=== PATIENT | male | born 1995 | race Caucasian/White ===

== ENCOUNTER 2021-10-31 18:41 | Emergency (ER) | payer OTHER, SELFPAY ==
--- NOTE | ~2021-10-31 | XR_ITS ---
EXAMINATION: XR chest 2V DATE: 10/31/2021 19:13 INDICATION: Tachycardia and chest tightness TECHNIQUE: PA and lateral views of the chest are obtained. COMPARISON: None available FINDINGS: The lungs are free of acute opacities. There is no pleural effusion or pneumothorax. The ca rdiomediastinal silhouette is normal. There is mild thoracic spondylosis. IMPRESSION: 1. No acute cardiopulmonary abnormality. Reviewed, dictated and finalized at location F.
--- NOTE | ~2021-10-31 | CT_ITS ---
EXAMINATION: CTA chest PE protocol DATE: 10/31/2021 22:13 INDICATION: Chest pain and tachycardia TECHNIQUE: Computed tomography angiography (CTA) of the chest was performed with 100 mL Omnipaque-350 intravenous contrast timed to evaluate the pulmonary arteries. Coronal maximum intensity projection 3D-reconstructions were created by the technologist. The dose-length product (DLP) was 1016.35 mGy-cm . Automated exposure control and iterative reconstruction technique were employed. COMPARISON: None. FINDINGS: There is fair opacification of the pulmonary arteries. No central pulmonary embolus is iden tified. The lungs are free of acute opacities. No pathologically enlarged thoracic lymph nodes are id entified. The heart size is normal. There is no pleural effusion or pneumothorax. The liver is diffus [place] low in attenuation when compared with the spleen, consistent with hepatic steatosis. IMPRESSION: 1. Fair opacification of the pulmonary arteries without evidence of central pulmonary embolus. Reviewed, dictated and finalized at location F. IMPRESSION: 1. Fair opacification of the pulmonary arteries without evidence of central pul monary embolus.
--- NOTE | 2021-10-31 18:43 | ECG_ITS ---
Measurements Intervals [place] Rate: 125 P: 46 AL: 172 QRS: -22 QRSD: 90 T: 31 QT: 303 QTc: 437 Interpretive Statements SINUS TACHYCARDIA VOLTAGE CRITERIA FOR LVH BORDERLINE T WAVE ABNORMALITY- INFERIOR LEADS BASELINE ARTIFACT- II, III, AVF ABNORMAL ECG Electronically Signed On 10-31-2021 20:39:00 CDT by Charlie Joshi D.O.
[2021-10-31 18:54] VITALS: BP 154/84; PULSE 130; RESP 19; TEMP 36.4; O2SAT 98
[2021-10-31 19:11] LABS: Basophils Absolute Auto 0.1 K/mm3 (0.0-0.1); Basophils Percent Auto 0.6 % (0.2-1.2); Eosinophils Percent Auto 0.5 % (0-4.4); Hematocrit 48.1 % (42.0-52.0); Hemoglobin 16.3 g/dL (14.0-18.0); Immature Granulocyte Absolute 0.02 K/mm3 (0.00-0.031); Immature Granulocyte Percent A 0.2 % (0-0.5); Lymphocytes Absolute Auto 2.17 K/mm3 (0.9-3.2); Lymphocytes Percent Auto 25.6 % (18.3-44.2); Mean Corpuscular HGB Conc 33.9 g/dl (32-36); Mean Corpuscular Hemoglobin 31.4 pg (26-34); Mean Corpuscular Volume 92.7 fl (80-100); Mean Platelet Volume 9.8 fl (7.4-10.4); Monocytes Absolute Auto 0.9 K/mm3 (0.1-0.6); Monocytes Percent Auto 10.5 % (2.6-8.5); Neutrophils Absolute Auto 5.3 K/mm3 (1.3-6.7); Neutrophils Percent Auto 62.6 % (45.5-73.1); Platelet Count Result 222 k/mm3 (150-375); Red Blood Count 5.19 M/mm3 (4.6-6.20); Red Cell Distribution Width 12.4 % (11.5-14.5); White Blood Count 8.5 K/mm3 (4.5-10.0)
[2021-10-31 19:25] LABS: Alanine Aminotransferase 78 U/L (6-50); Albumin Level 4.8 g/dL (3.5-5.1); Alkaline Phosphatase 77 U/L (38-126); Anion Gap 7 mmol/L (8-16); Aspartate Amino Transferase 71 U/L (17-59); Bilirubin,Total 0.5 mg/dL (0.2-1.3); Blood Urea Nitrogen 12 mg/dL (9-20); Calcium 9.3 mg/dL (8.4-10.2); Carbon Dioxide 30 mmol/L (22-30); Chloride 104 mmol/L (98-107); Estimated CRCL calculation 174 ml/min; Estimated Glomerular Filt Rate > 60; Glucose 157 mg/dL (65-110); Lipase 63 U/L (23-300); Potassium 4.3 mmol/L (3.4-5.0); Sodium 141 mmol/L (137-145)
[2021-10-31 19:28] LABS: INR 1.1; Prothrombin Time 13.4 Seconds (11.1-14.7)
[2021-10-31 19:29] LABS: Partial Thromboplastin Time 30.5 SECONDS (22.3-36.8)
[2021-10-31 19:35] LABS: Troponin I < 0.012 ng/mL (0.000-0.034)
--- NOTE | 2021-10-31 20:41 | ED.CHESTPAIN ---
HPI - Chest Pain General Chief Complaint: Chest Pain Stated Complaint: chest pain Time Seen by Provider: 10/31/21 20:41 Source: patient Mode of arrival: ambulatory Limitations: no limitations History of Present Illness HPI narrative: Patient is 26 years old white male presents to the ED with palpitation, heart rate in the 160, and chest pain off and on for the last few days. Increase level of stress lately. Patient had history of anxiety and PTSD, used to be on clonazepam. Patient received 0.25 mg of lorazepam prior to arrival to the emergency room. Currently his heart rate 131 bpm. Patient does use marijuana, denied tobacco use or alcohol use Related Data Allergies Allergy/AdvReac Type Severity Reaction Status Date / Time No Known Allergies Allergy Unverified 11/10/16 16:41 Review of Systems Review of Systems: All systems reviewed & are unremarkable except as noted in HPI and below Exam Narrative: General appearance: Well-developed, well-nourished Skin: Normal color Head: Normocephalic, nontraumatic Eyes: Clear conjunctiva ENT: Oropharynx normal, ears normal, nose normal Neck: Supple, nontender Chest and respiratory: Airway patent, no respiratory distress, no accessory muscle use Heart: Tachycardia Abdomen: Soft, nontender, no organomegaly, quiet bowel sounds Vascular: Normal peripheral pulses, normal capillary refill. Musculoskeletal: Normal range of motion, nontender back Neurologic: Alert and oriented ?3, [employer] is normal as tested, no gross motor deficit Course Vital Signs Vital signs: Vital Signs Temperature 36.4 C 10/31/21 18:54 Pulse Rate 130 H 10/31/21 18:54 Respiratory Rate 19 10/31/21 18:54 Blood Pressure 154/84 H 10/31/21 18:54 Pulse Oximetry 98 10/31/21 18:54 Oxygen Delivery Room Air 10/31/21 18:54 Temperature 36.4 C 10/31/21 18:54 Pulse Rate 130 H 10/31/21 18:54 Respiratory Rate 19 10/31/21 18:54 Blood Pressure 154/84 H 10/31/21 18:54 Pulse Oximetry 98 10/31/21 18:54 Oxygen Delivery Room Air 10/31/21 18:54 MDM - Chest Pain Lab Data Result diagrams: 10/31/21 19:01 10/31/21 19:01 Labs: Lab Results 10/31/21 10/31/2110/31/22 Range/Units 19:01 19:01 19:01 WBC 8.5 (4.5-10.0) K/mm3 RBC 5.19 (4.6-6.20) M/mm3 Hgb 16.3 (14.0-18.0) g/dL Hct 48.1 (42.0-52.0) % MCV 92.7 (80-100) fl MCH 31.4 (26-34) pg MCHC 33.9 (32-36) g/dl RDW 12.4 (11.5-14.5) % Plt Count 222 (150-375) k/mm3 MPV 9.8 (7.4-10.4) fl Immature Gran % (Auto) 0.2 (0-0.5) % Neut % (Auto) 62.6 (45.5-73.1) % Lymph % (Auto) 25.6 (18.3-44.2) % [place] % (Auto) 10.5 H (2.6-8.5) % Eos % (Auto) 0.5 (0-4.4) % Baso % (Auto) 0.6 (0.2-1.2) % Lymph # (Auto) 2.17 (0.9-3.2) K/mm3 [place] # (Auto) 0.9 H (0.1-0.6) K/mm3 Eos # (Auto) 0.0 (0-0.3) K/mm3 Baso # (Auto) 0.1 (0.0-0.1) K/mm3 Abs Immat Gran (auto) 0.02 (0.00-0.031) K/mm3 Absolute Neuts (auto) 5.3 (1.3-6.7) K/mm3 Absolute Nucleated RBC 0.0 (0.0-0.012) K/mm3 Nucleated RBC % 0.0 (0.0-0.2) % PT 13.4 (11.1-14.7) Seconds INR 1.1 APTT 30.5 (22.3-36.8) SECONDS Sodium 141 (137-145) mmol/L Potassium 4.3 (3.4-5.0) mmol/L Chloride 104 (98-107) mmol/L Carbon Dioxide 30 (22-30) mmol/L Anion Gap 7 L (8-16) mmol/L BUN 12 (9-20) mg/dL Creatinine 0.90 (0.7-1.3) mg/dL Estim Creat Clear Calc 174 ml/min Estimated GFR > 60 (59 - ) Glucose 157 H (65-110) mg/dL Calcium 9.3 (8.4-10.2) mg/dL Total Bilirubin 0.5 (0.2-1.3) mg/dL AST 71 H (17-59) U/L ALT 78 H (6-50) U/L
[2021-10-31 20:50] VITALS: BP 114/74; PULSE 99; RESP 20; O2SAT 100
[2021-10-31 20:57] VITALS: BP 150/102; PULSE 122; RESP 22; O2SAT 96
[2021-10-31 21:03] VITALS: PULSE 122
[2021-10-31] MEDS: LORazepam INJ (*CRX) 2 MG/ML VIAL 1 MG IV PUSH (21:08)
[2021-10-31 21:12] LABS: D Dimer 1.37 ug/mL (<0.48)
--- NOTE | 2021-10-31 21:30 | PC.NURSE ---
called lab at 2129 to add on TSH, spoke with Yury MOSHER 2130
[2021-10-31 22:56] LABS: Troponin I < 0.012 ng/mL (0.000-0.034)
[2021-10-31] MEDS: SODIUM CHLORIDE 0.9% IV 1,000 ML 999 ML IV CONT (22:56)
[2021-10-31] MEDS: ENOXAPARIN 120 MG/0.8 ML SYRINGE SUB-Q (22:57)
[2021-10-31] MEDS: ENOXAPARIN 30 MG/0.3 ML SYRINGE SUB-Q (22:58)
[2021-11-01 00:01] VITALS: BP 156/90; PULSE 113; RESP 22; O2SAT 97
== END 2021-11-01 00:10 | disposition home or self-care (01) ==
PROVIDERS: Emergency Provider Emergency Medicine
DX: R07.89 Other chest pain (principal); R00.2 Palpitations; F41.9 Anxiety disorder, unspecified
CPT/HCPCS: 36415; 71046; 71275; 80053; 83690; 84443; 84484; 85025; 85380; 85610; 85730; 93005; 96361; 96372; 96374; 99284; J1650; J2060; J7030; Q9967

== ENCOUNTER 2022-08-30 14:31 | Emergency (ER) | payer OTHER, SELFPAY ==
--- NOTE | ~2022-08-30 | CT_ITS ---
EXAMINATION: CT abdomen pelvis wo con DATE: 08/30/2022 17:34 INDICATION: Abdominal pain TECHNIQUE: Computed tomography (CT) of the abdomen and pelvis was performed without intravenous contr ast. The dose-length product (DLP) was 915.99 mGy-cm. Automated exposure control and iterative recons truction technique were employed. COMPARISON: None FINDINGS: The lung bases are clear. The heart size is normal. The liver, spleen, pancreas, gallbladde r, and adrenal glands are normal. The kidneys are unremarkable. No stones are identified in the kidne ys, ureters, or bladder. No hydronephrosis or hydroureter. No pathologically enlarged abdominal or pe lvic lymph nodes are identified. No free intraperitoneal gas or evidence of bowel obstruction. The ap pendix is normal. There is mild lumbar spondylosis. IMPRESSION: 1. No CT correlate for the patient's symptoms. Reviewed, dictated and finalized at location F.
--- NOTE | ~2022-08-30 | US_ITS ---
EXAMINATION: US scrotum doppler DATE: 08/30/2022 17:07 INDICATION: Right testicular pain TECHNIQUE: Testicular sonogram utilizing grayscale and Doppler COMPARISON: None. FINDINGS: The right testis measures 4.3 x 2.5 x 2.9 cm. The left testis measures 4.7 x 2.4 x 2.6 cm. There is normal vascular flow to both testes. The right epididymis is normal with normal vascular kelsey w. The left epididymis is normal with normal vascular flow. There is no varicocele or hydrocele. IMPRESSION: 1. No sonographic correlate for the patient's symptoms. Reviewed, dictated and finalized at location F.
[2022-08-30 14:36] VITALS: BP 139/84; PULSE 120; RESP 16; TEMP 36.5; O2SAT 99
[2022-08-30 14:47] LABS: Basophils Absolute Auto 0.1 K/mm3 (0.0-0.1); Basophils Percent Auto 0.7 % (0.2-1.2); Eosinophils Absolute Auto 0.1 K/mm3 (0-0.3); Eosinophils Percent Auto 0.8 % (0-4.4); Hematocrit 47.9 % (42.0-52.0); Hemoglobin 16.7 g/dL (14.0-18.0); Immature Granulocyte Absolute 0.02 K/mm3 (0.00-0.031); Immature Granulocyte Percent A 0.2 % (0-0.5); Lymphocytes Absolute Auto 3.29 K/mm3 (0.9-3.2); Lymphocytes Percent Auto 33.5 % (18.3-44.2); Mean Corpuscular HGB Conc 34.9 g/dl (32-36); Mean Corpuscular Hemoglobin 31.5 pg (26-34); Mean Corpuscular Volume 90.2 fl (80-100); Mean Platelet Volume 9.5 fl (7.4-10.4); Monocytes Percent Auto 10.6 % (2.6-8.5); Neutrophils Absolute Auto 5.3 K/mm3 (1.3-6.7); Neutrophils Percent Auto 54.2 % (45.5-73.1); Platelet Count Result 204 k/mm3 (150-375); Red Blood Count 5.31 M/mm3 (4.6-6.20); Red Cell Distribution Width 12.1 % (11.5-14.5); White Blood Count 9.8 K/mm3 (4.5-10.0)
[2022-08-30 14:59] LABS: Alanine Aminotransferase 58 U/L (6-50); Alkaline Phosphatase 69 U/L (38-126); Anion Gap 11 mmol/L (8-16); Aspartate Amino Transferase 53 U/L (17-59); Bilirubin,Total 1.4 mg/dL (0.2-1.3); Blood Urea Nitrogen 14 mg/dL (9-20); Calcium 9.4 mg/dL (8.4-10.2); Carbon Dioxide 25 mmol/L (22-30); Chloride 102 mmol/L (98-107); Estimated CRCL calculation 184 ml/min; Estimated Glomerular Filt Rate > 60; Glucose 107 mg/dL (65-110); Lipase 97 U/L (23-300); Potassium 3.4 mmol/L (3.4-5.0); Sodium 138 mmol/L (137-145)
[2022-08-30 15:28] LABS: Appearance Urine Clear (Clear); Bacteria Urine None Seen /hpf; Bilirubin Urine Negative (Negative); Blood Urine 3+ (Negative); Color Urine Yellow (Yellow); Glucose Urine UA Negative (Negative); Ketones Urine Trace mg/dL (Negative); Leukocyte Esterase Ur Negative LEU/UL (Negative); Nitrate Urine Negative (Negative); Non Pathogenic Casts 0-2; Protein Urine 2+ mg/dL (Negative); RBC Urine 51-100 /hpf (0-2); Specific Grav Ur 1.021 (1.001-1.035); Squamous Epithelial Cell Urine None seen /hpf (Few); WBC Urine 0-5 /hpf
[2022-08-30 15:29] LABS: Add Urine Microscopic? YES
[2022-08-30] MEDS: KETOROLAC 30 MG/ML VIAL (*BKC) IV PUSH (16:44)
--- NOTE | 2022-08-30 16:50 | ED.GENADULT ---
HPI - General Adult General Chief complaint: Abdominal Pain Stated complaint: abd pain, scrotal pain, VILLALOBOS, vomiting Time Seen by Provider: 08/30/22 15:35 History of Present Illness HPI narrative: Patient is a 27-year-old male who presents ER with right-sided testicle pain. Ongoing for 3 days. It was dull and achy initially but is increased in intensity over the last couple days. No urinary frequency urgency or dysuria. No urethral discharge. No concern for STI. He has had some mild flank pain previously but did not feel it was related. Has suprapubic discomfort. Occasionally has nausea with some vomiting. Denies trauma. Related Data Allergies Allergy/AdvReac Type Severity Reaction Status Date / Time No Known Allergies Allergy Unverified 11/10/16 16:41 Review of Systems Review of Systems: All systems reviewed & are unremarkable except as noted in HPI and below Constitutional: Constitutional: Denies chills, Denies fatigue and Denies fever(s) Cardiovascular: Cardiovascular: Denies chest pain and Denies rapid heart rate Gastrointestinal: Gastrointestinal: Reports abdominal pain, Denies diarrhea, Reports nausea and Reports vomiting Genitourinary: Genitourinary: Denies hematuria, Denies genital lesions, Denies dysuria, Denies penile discharge and Reports testicular pain PMFSH Past Medical History Medical History (Updated 08/30/22 @ 18:40 by Jason Mathew MD) Hypertension Surgical History Surgical History (Updated 08/30/22 @ 16:52 by Jason Mathew MD) No history of previous surgery Exam Narrative: GENERAL: Well-appearing, well-nourished, and in no acute distress. HEAD: Normocephalic, atraumatic. NECK: Supple. CHEST: Clear to auscultation. No respiratory distress. HEART: Regular rate and rhythm. Normal peripheral pulses. ABDOMEN: Soft, nontender, nondistended. : Buried uncircumcised penis with manipulated shows no urethral discharge or abnormality of the glans. Testicles nontender bilaterally. No inguinal hernia. EXTREMITIES: Normal range of motion. No edema. SKIN: Warm, dry, no rash. NEURO: Alert and oriented x3. PSYCH: Normal mood and affect. Course Course Emergency Course: Patient resting comfortably. Informed of results. No source of discomfort however patient does have some hematuria so I suspect he could have potentially passed a kidney stone. Patient be discharged. Recommend tight fitting underwear and anti-inflammatories. Vital Signs Vital signs: Vital Signs Temperature 97.7 F 08/30/22 14:36 Pulse Rate 120 H 08/30/22 14:36 Respiratory Rate 16 08/30/22 14:36 Blood Pressure 139/84 08/30/22 14:36 Pulse Oximetry 99 08/30/22 14:36 Oxygen Delivery Room Air 08/30/22 14:36 Temperature 97.7 F 08/30/22 14:36 Pulse Rate 95 08/30/22 18:26 Respiratory Rate 18 08/30/22 18:26 Blood Pressure 128/78 08/30/22 18:26 Pulse Oximetry 100 08/30/22 18:26 Oxygen Delivery Room Air 08/30/22 14:36 Medical Decision Making Vital Signs Vital Signs: Vital Signs Temperature 97.7 F 08/30/22 14:36 Pulse Rate 120 H 08/30/22 14:36 Respiratory Rate 16 08/30/22 14:36 Blood Pressure 139/84 08/30/22 14:36 Pulse Oximetry 99 08/30/22 14:36 Oxygen Delivery Room Air 08/30/22 14:36 Temperature 97.7 F 08/30/22 14:36 Pulse Rate 95 08/30/22 18:26 Respiratory Rate 18 08/30/22 18:26 Blood Pressure 128/78 08/30/22 18:26 Pulse Oximetry 100 08/30/22 18:26 Oxygen Delivery Room Air 08/30/22 14:36 Lab Data 08/30/22 14:40 08/30/22 14:40 Labs: Lab Results 08/30/22 08/30/22 08/30/22 Range/Units 14:40 14:40 15:17 WBC 9.8 (4.5-10.0) K/mm3 RBC 5.31 (4.6-6.20) M/mm3 Hgb 16.7 (14.0-18.0) g/dL Hct 47.9 (42.0-52.0) % MCV 90.2 (80-100) fl MCH 31.5 (26-34) pg MCHC 34.9 (32-36) g/dl RDW 12.1 (11.5-14.5) % Plt Count 204 (150-375) k/mm3 MPV 9.5 (7.4-10.4)
[2022-08-30 18:26] VITALS: BP 128/78; PULSE 95; RESP 18; O2SAT 100
== END 2022-08-30 18:49 | disposition home or self-care (01) ==
PROVIDERS: Emergency Provider Emergency Medicine
DX: N50.811 Right testicular pain (principal); I10 Essential (primary) hypertension
CPT/HCPCS: 36415; 74176; 76870; 80053; 81001; 83690; 85025; 93976; 96374; 99284; J1885

== ENCOUNTER 2023-08-29 16:50 | Emergency (ER) | payer OTHER, SELFPAY ==
[2023-08-29 16:52] VITALS: BP 154/83; PULSE 94; RESP 18; TEMP 36.2; O2SAT 98
--- NOTE | 2023-08-29 16:56 | ED.ARRPALP ---
HPI - Arrhythmia/Palpitations General Chief Complaint: Arrhythmia/Palpitations Stated Complaint: anxiety, elevated HR, legs feel shakey Time Seen by Provider: 08/29/23 16:56 History of Present Illness HPI narrative: 28-year-old male with reported history of anxiety and hypertension presents to emergency department for palpitations. Patient states he woke up this morning around 11:00 a.m. feeling like his heart was beating quickly. States that not resolved which prompted come to the ER. Patient states he has associated tingling in his hands and feet and believes that his symptoms are secondary to anxiety. He does not take anything for anxiety. He does have a PCP. States since he has been in the ER he feels much better and relieved. He denies chest pain or shortness of breath, syncope, fever, nausea vomiting, diarrhea, abdominal pain , cough or congestion, SI or HI. Related Data Allergies Allergy/AdvReac Type Severity Reaction Status Date / Time No Known Allergies Allergy Verified 08/29/23 16:55 Review of Systems Review of Systems: CONSTITUTIONAL: Denies fever, chills, or sweats. EYES: Denies visual changes, redness, or discharge. ENT: Denies rhinorrhea, congestion, sore throat, or otalgia. CARDIOVASCULAR: see HPI RESPIRATORY: Denies cough or dyspnea. GASTROINTESTINAL: Denies abdominal pain, nausea, vomiting, or diarrhea. GENITOURINARY: Denies dysuria or hematuria. SKIN: Denies rash or itching. MUSCULOSKELETAL: Denies back pain, joint pain, or myalgia. NEUROLOGIC: Denies headache, numbness, or weakness. PSYCHIATRIC: See HPI PMFSH Past Medical History Medical History Hypertension Surgical History Surgical History No history of previous surgery Exam Narrative: GENERAL: Well-appearing, well-nourished, and in no acute distress. HEAD: Normocephalic, atraumatic. EYES: PERRLA and EOMI. ENT: Nares clear, no rhinorrhea or epistaxis. Mucous membranes moist. NECK: Supple. CHEST: Clear to auscultation. No respiratory distress. HEART: Regular rate and rhythm. No murmur heard. Normal peripheral pulses. ABDOMEN: Soft, nontender, nondistended, normal active bowel sounds. EXTREMITIES: Normal range of motion. No edema. SKIN: Warm, dry, no rash. NEURO: No focal deficits. Alert and oriented x3 Course Vital Signs Vital signs: Vital Signs Temperature 97.2 F L 08/29/23 16:52 Pulse Rate 94 08/29/23 16:52 Respiratory Rate 18 08/29/23 16:52 Blood Pressure 154/83 H 08/29/23 16:52 Pulse Oximetry 98 08/29/23 16:52 Oxygen Delivery Room Air 08/29/23 16:52 Temperature 97.2 F L 08/29/23 16:52 Pulse Rate 94 08/29/23 16:52 Respiratory Rate 18 08/29/23 16:52 Blood Pressure 154/83 H 08/29/23 16:52 Pulse Oximetry 98 08/29/23 16:52 Oxygen Delivery Room Air 08/29/23 16:52 MDM - Arrhythmia/Palpitations MDM Narrative Medical decision making narrative: 28-year-old male with history of anxiety and hypertension presents to the emergency department for reported fast heart rate that started today association paresthesias in his hands and feet. upon arrival, patient's heart rate has bounced between 80-95 in triage. He denies any symptoms. States he feels much better since being in the ER. I suspect anxiety is the cause of patient's symptoms. Offered an EKG, however he declined. Will send hydroxyzine to pharmacy encouraged close follow-up with his PCP. Strict ED return precautions discussed. He is agreeable to plan verbalized understanding. Discharged in stable condition. Discharge Plan Discharge Clinical Impression: Palpitations, Anxiety Patient Disposition: Home, Self-Care Condition: Stable Instructions: Antibiotic Form, Heart Palpitations (ED), Anxiety (ED) Additional Instructions: Your evaluated in the emergency department for sensation of her heart
== END 2023-08-29 17:07 | disposition home or self-care (01) ==
LOC: ANHED 17:00
PROVIDERS: Emergency Provider Physician Assistant; PCP Internal Medicine
DX: R00.2 Palpitations (principal); F41.9 Anxiety disorder, unspecified; I10 Essential (primary) hypertension
CPT/HCPCS: 99283

== ENCOUNTER 2024-03-13 16:34 | Emergency (ER) | payer MEDICAID, SELFPAY ==
[2024-03-13 16:42] VITALS: BP 146/77; PULSE 107; RESP 20; TEMP 36.4; O2SAT 99
--- NOTE | 2024-03-13 16:55 | ECG_ITS ---
Test Date: 2024-03-13 17:17:50 Measurements Intervals [place] Rate: 90 P: 36 [place]: 170 QRS: -15 QRSD: 90 T: 12 QT: 339 QTc: 416 Interpretive Statements SINUS RHYTHM VOLTAGE CRITERIA FOR LVH [MEETS CRITERIA IN ONE OF: R(aVL), S(V1), R(V5), R(V5/V6)+S(V1)] No previous ECG available for comparison Electronically Signed On 03-14-2024 08:26:47 CDT by Mike Vargas M.D.
[2024-03-13 17:13] LABS: Add Urine Microscopic? YES; Appearance Urine Cloudy (Clear); Bacteria Urine None Seen /hpf; Bilirubin Urine Negative (Negative); Blood Urine 3+ (Negative); Color Urine Yellow (Yellow); Glucose Urine UA Negative (Negative); Ketones Urine Trace mg/dL (Negative); Leukocyte Esterase Ur Negative LEU/UL (Negative); Nitrate Urine Negative (Negative); Non Pathogenic Casts 0-2; Protein Urine 2+ mg/dL (Negative); RBC Urine 0-2 /hpf (0-2); Specific Grav Ur 1.025 (1.001-1.035); Squamous Epithelial Cell Urine None Seen /hpf (Few); WBC Urine 0-5 /hpf (0-3); pH Urine 5.5 (5.0-9.0)
--- NOTE | 2024-03-13 17:21 | ED.MALEGU ---
HPI - Male Genitourinary General Chief complaint: Urogenital-Male Stated complaint: lower back pain/urination issues Time Seen by Provider: 03/13/24 16:53 History of Present Illness HPI Narrative: Patient with history of prostatitis presents here with 4 days of increased urgency and frequency and some suprapubic discomfort. He is also concerned because earlier this morning he woke up and was feeling palpitations, and feeling like his arms and legs were tense. Symptoms have largely resolved. History of slight anxiety denies any recent stressors. Related Data Allergies Allergy/AdvReac Type Severity Reaction Status Date / Time No Known Allergies Allergy Verified 03/13/24 16:35 Review of Systems Review of Systems: All systems reviewed & are unremarkable except as noted in HPI and below PMFSH Past Medical History Medical History Hypertension Surgical History Surgical History No history of previous surgery Exam Narrative: EXAMINATION OF ORGAN SYSTEMS/BODY AREAS: Constitutional: Vital signs per nursing GENERAL:[No acute distress, non-toxic appearing.] HEAD: Normal with no signs of head trauma. EYES: EOMI, conjunctiva normal ENT: Hearing grossly intact LUNGS: Nonlabored breathing. HEART: [Regular rate and rhythm] ABD: [Soft], [nontender to palpation] EXT: Normal range of motion SKIN: [No rashes or lesions.] NEURO: [Alert and oriented x 3. No gross focal sensory or strength deficits.] PSYCH: Normal affect Course Vital Signs Vital signs: Vital Signs Temperature 97.6 F 03/13/24 16:42 Pulse Rate 107 H 03/13/24 16:42 Respiratory Rate 20 03/13/24 16:42 Blood Pressure 146/77 H 03/13/24 16:42 Pulse Oximetry 99 03/13/24 16:42 Oxygen Delivery Room Air 03/13/24 16:42 Temperature 97.6 F 03/13/24 16:42 Pulse Rate 107 H 03/13/24 16:42 Respiratory Rate 20 03/13/24 16:42 Blood Pressure 146/77 H 03/13/24 16:42 Pulse Oximetry 99 03/13/24 16:42 Oxygen Delivery Room Air 03/13/24 16:42 MDM - Male Genitourinary MDM Narrative Medical decision making narrative: Patient presents palpitations and muscle spasms when he woke up this morning that now resolved, and some dysuria. Had similar dysuria symptoms about a year ago, for which he was on antibiotics for about 6 months and was diagnosed with possible chronic pelvic pain syndrome, which resolved. He is monogamous with his fiancee has low concern for STDs. Urinalysis here shows blood, has been the case in the past, however no signs of infection. I did obtain CBC and BMP which are normal. I did obtain EKG given his palpitations, on my independent interpretation shows sinus rhythm rate 90, HI 170, QRS 90, QTC 416, normal axis, no ST elevations or depressions. I did briefly consider possible PE however he has no shortness of breath, DVT symptoms. Stable for discharge at this time with return precautions, patient and fiancee at bedside agreeable to this plan with precautions Lab Data 03/13/24 17:25 03/13/24 17:25 Labs: Lab Results 03/13/24 03/13/24 Range/Units 17:03 17:25 WBC 8.6 (4.5-10.0) K/mm3 RBC 5.19 (4.6-6.20) M/mm3 Hgb 16.2 (14.0-18.0) g/dL Hct 46.6 (42.0-52.0) % MCV 89.8 (80-100) fl MCH 31.2 (26-34) pg MCHC 34.8 (32-36) g/dl RDW 11.9 (11.5-14.5) % Plt Count 208 (150-375) k/mm3 MPV 9.5 (7.4-10.4) fl Immature Gran % (Auto) 0.2 (0-0.5) % Neut % (Auto) 69.3 (45.5-73.1) % Lymph % (Auto) 20.6 (18.3-44.2) % [place] % (Auto) 8.5 (2.6-8.5) % Eos % (Auto) 0.9 (0-4.4) % Baso % (Auto) 0.5 (0.2-1.2) % Lymph # (Auto) 1.77 (0.9-3.2) K/mm3 [place] # (Auto) 0.7 H (0.1-0.6) K/mm3 Eos # (Auto) 0.1 (0-0.3) K/mm3 Baso # (Auto) 0.0 (0.0-0.1) K/mm3 Abs Immat Gran (auto) 0.02 (0.00-0.031) K/mm3 Absolute Neuts (au
[2024-03-13 17:32] LABS: Basophils Percent Auto 0.5 % (0.2-1.2); Eosinophils Absolute Auto 0.1 K/mm3 (0-0.3); Eosinophils Percent Auto 0.9 % (0-4.4); Hematocrit 46.6 % (42.0-52.0); Hemoglobin 16.2 g/dL (14.0-18.0); Immature Granulocyte Absolute 0.02 K/mm3 (0.00-0.031); Immature Granulocyte Percent A 0.2 % (0-0.5); Lymphocytes Absolute Auto 1.77 K/mm3 (0.9-3.2); Lymphocytes Percent Auto 20.6 % (18.3-44.2); Mean Corpuscular HGB Conc 34.8 g/dl (32-36); Mean Corpuscular Hemoglobin 31.2 pg (26-34); Mean Corpuscular Volume 89.8 fl (80-100); Mean Platelet Volume 9.5 fl (7.4-10.4); Monocytes Absolute Auto 0.7 K/mm3 (0.1-0.6); Monocytes Percent Auto 8.5 % (2.6-8.5); Neutrophils Percent Auto 69.3 % (45.5-73.1); Platelet Count Result 208 k/mm3 (150-375); Red Blood Count 5.19 M/mm3 (4.6-6.20); Red Cell Distribution Width 11.9 % (11.5-14.5); White Blood Count 8.6 K/mm3 (4.5-10.0)
[2024-03-13 17:41] LABS: Anion Gap 9 mmol/L (4-12); Blood Urea Nitrogen 17 mg/dL (9-20); Carbon Dioxide 26 mmol/L (22-30); Chloride 103 mmol/L (98-107); Estimated CRCL calculation 205 ml/min; Estimated Glomerular Filt Rate > 60; Glucose 124 mg/dL (65-110); Magnesium 2.1 mg/dL (1.6-2.3); Potassium 4.2 mmol/L (3.4-5.0); Sodium 138 mmol/L (137-145)
[2024-03-13 18:35] LABS: Chlamydia trachomatis NOT DETECTED (NOT DETECTE); Neisseria gonorrhoeae PCR NOT DETECTED (NOT DETECTE)
== END 2024-03-13 18:28 | disposition home or self-care (01) ==
LOC: ANHED 18:07
PROVIDERS: Emergency Provider Emergency Medicine; PCP Internal Medicine
DX: R00.2 Palpitations (principal); R35.0 Frequency of micturition; I10 Essential (primary) hypertension
CPT/HCPCS: 36415; 80048; 81001; 83735; 85025; 87491; 87591; 93005; 99283

== ENCOUNTER 2024-07-29 14:41 | Outpatient (CLI) | payer OTHER, SELFPAY ==
[2024-07-29 15:21] LABS: Basophils Absolute Auto 0.1 K/mm3 (0.0-0.1); Basophils Percent Auto 0.4 % (0.2-1.2); Eosinophils Absolute Auto 0.1 K/mm3 (0-0.3); Eosinophils Percent Auto 0.6 % (0-4.4); Hematocrit 42.3 % (42.0-52.0); Hemoglobin 14.1 g/dL (14.0-18.0); Immature Granulocyte Absolute 0.09 K/mm3 (0.00-0.031); Immature Granulocyte Percent A 0.6 % (0-0.5); Lymphocytes Absolute Auto 2.82 K/mm3 (0.9-3.2); Mean Corpuscular HGB Conc 33.3 g/dl (32-36); Mean Corpuscular Hemoglobin 30.1 pg (26-34); Mean Corpuscular Volume 90.2 fl (80-100); Mean Platelet Volume 9.2 fl (7.4-10.4); Monocytes Absolute Auto 1.6 K/mm3 (0.1-0.6); Monocytes Percent Auto 11.1 % (2.6-8.5); Neutrophils Absolute Auto 9.5 K/mm3 (1.3-6.7); Neutrophils Percent Auto 67.3 % (45.5-73.1); Platelet Count Result 309 k/mm3 (150-375); Red Blood Count 4.69 M/mm3 (4.6-6.20); Red Cell Distribution Width 12.2 % (11.5-14.5); White Blood Count 14.1 K/mm3 (4.5-10.0)
[2024-07-29 16:20] LABS: HIV 1/2 Ab P24 Ag Result Negative (Negative)
[2024-07-29 16:29] LABS: Hepatitis C Virus Antibody Negative (Negative)
[2024-07-29 16:54] LABS: Chlamydia trachomatis NOT DETECTED (NOT DETECTE); Neisseria gonorrhoeae PCR NOT DETECTED (NOT DETECTE)
--- OUTSIDE RECORDS SUMMARY | 2024-07-29 17:02 | XMS_ITS | Patient Health Summary ---
Author Organization [facility] [employer] Address [address] [place] [address] Care Team Providers Care Wool Spotter Name Role Phone Unavailable Primary Care Provider Unavailabl e Note from [facility],non-owned Affiliates and Associated Physician Practices is amultiple site organization consisting of ambulatory clinics and hospital sitesin [place], [place], [place] and [place]. This disclosure is being madepursuant to the Care Everywhere program and may not contain all information available regarding this patient. Last updated 18.[facility] [employer] Allergies No known active allergies Medications * Be aware that medications may not be up to date on this document. Alwaysverify current medications with the patient. * amoxicillin-clavulanate (AUGMENTIN) 875-125 MG tablet(Started 09/09/2013) Take 1 Tab by mouth 2 times daily with morning and evening meal. * albuterol HFA (PROVENTIL;VENTOLIN;PROAIR) 108 (90 BASE) MCG/ACT inhaler (Started 09/09/2013) Inhale 2 Puffs by mouth every 4 hours as needed for Wheezing or Cough. OK TO SUBSTITUTE ANY BRAND. * Spacer/Aero-Holding Chambers (AEROCHAMBER PLUS KIM-VU) MISC(Started 09/09/2013) Use 1 Container every 4 hours as needed. 1 refill left * predniSONE (DELTASONE) 20 MG tablet(Started 09/09/2013) 2 tabs po bid for 5 days * methylphenidate (RITALIN) 10 MG tablet(Started 12/22/2013) Take 1 Tab by mouth Every morning and lunchtime. * miconazole (LOTRIMIN AF) 2 % powder(Started 03/19/2014) Apply to affected area 2 times daily. 3 refills left * hydrOXYzine HCl (ATARAX) 50 MG tablet(Started 11/07/2021) Take 1 (one) tablet by mouth 3 times daily as needed for Itching * hydroCHLOROthiazide (HYDRODIURIL) 25 MG tablet(Started 11/07/2021) Take 1 (one) tablet by mouth once daily Active Problems Problem Noted Date Diagnosed Date ADD (attention deficit disorder) 04/21/2012 BMI (body mass index), pediatric, 95-99% for age 1104/21/2012 Immunizations * DTaP VACCINE IM (6wk-6yrs)(Given 05/16/2001, 08/13/1997, 1996, 1996, 1996) * HEP A PEDS 2 DOSE(Given 09/27/2004, 06/24/2003) * HEP B VACCINE, PED/ADOL(Given 02/26/1997, 1996, 1996) * HIB-PRP-T 4 DOSE(Given 08/13/1997, 1996, 1996, 1996) * Human Papilloma Virus Quadrivalent Vaccine(Given 10/23/2012, 04/21/2012) * Human Papilloma Virus Vaccine(Given 09/24/2011) * INFLUENZA VACCINE(Given 06/08/2002, 04/18/2002) * INFLUENZA VACCINE, QUADR. (FLUZONE; FLULAVAL; FLUARIX; AFLURIA QUADRIVALENT; 6MO+), 0.5 ML (IIV4)(Given 03/19/2014) * Influenza Nasal(Given 04/21/2012) * MENINGOCOCAL MENINGITIS(Given 08/29/2007) * MENINGOCOCCAL CONJUGATE (MCV4P)(Given 04/21/2012) * MMR(Given 05/16/2001, 05/19/1997) * POLIO IPV(Given 05/16/2001) * POLIO OPV(Given 08/13/1997, 1996, 1996, 1996) * PPD(Given 05/16/2001) * TDAP (7yrs+)(Given 08/29/2007) * VARICELLA(Given 05/19/1997) Social History Tobacco Use Types Packs/Day Years Used Date Smoking Tobacco: Never Alcohol Use Standard Drinks/Week Comments No 0 (1 standard drink = 0.6 oz pur e alcohol) Sex and Gender Information Value Date Recorded Sex Assigned at Not on file Gender Identity Not on file Sexual Orientation Not on file Last Filed Vital Signs Vital Sign Reading Time Taken Comments Blood Pressure 159/98 11/07/2021 5:15 AM CDT Pulse 87 11/07/2021 5:15 AM CDT Temperature 36.9 C (98.5 F) 11/06/2021 10:16 PM CDT Respiratory Rate 8 11/07/2021 5:15 AM CDT Oxygen Saturation 95% 11/07/2021 5:15 AM CDT Inhaled Oxygen Concentration - - Weight 156.5 kg (345 lb) 11/06/2021 2:23 PM CDT Height 185.4 cm (6' 1 ) 11/06/2021 2:23 PM CDT Body Mass Index 45.52 11/06/2021 2:23 PM CDT Procedures * CARDIAC EKG ORDER(Performed 11/08/2021) * CT ANGIO CHEST CT ABD PELVIS W(Performed 11/07/2021) Performed for Palpitations * URINE MICROSCOPIC ONLY(Performed 11/07/2021) * URINALYSIS REFLEX TO MICROSCOPIC NO CULTURE(Performed 11/07/2021) * TSH REFLEX FREE T4(Performed 11/07/2021) * B-TYPE NATRIURETIC PEPTIDE(Performed 11/07/2021) * TROPONIN I(Performed 11/07/2021) * XR CHEST 2VW(Performed 11/06/2021) Performed for Palpitations * MAGNESIUM BLOOD(Performed 11/06/2021) * TROPONIN I(Performed 11/06/2021) * COMPREHENSIVE METABOLIC PANEL(Performed 11/06/2021) * CBC W AUTO DIFFERENTIAL(Performed 11/06/2021) * D-DIMER(Performed 11/06/2021) * EKG 12-LEAD(Performed 11/06/2021) Performed for Palpitations Results * CARDIAC EKG ORDER (11/08/2021 6:37 PM CDT) Narrative 11/08/2021 6:37 PM CDT Ordered by an unspecified provider. Scanned Document CARDIAC SERVICES ORD ERABLES * CT ANGIO CHEST CT ABD PELVIS W (11/07/2021 2:30 AM CDT) Anatomical Region Laterality Modality Chest, Abdomen, Pelvis Computed Tomography 11/07/2021 10:2 1 AM CDT Impressions 11/07/2021 10:51 AM CDT 1. No evidence of pulmonary embolism. 2. Hepatic steatosis. I, Michael Newby, have personally reviewed the images and I agree with this report. *Reading Radiologist: iMchael Newby on 11/07/2021 at 10:51 AM Narrative 11/07/2021 10:51 AM CDT INDICATION: 26 year old male with palpitations and abdominal pain COMPARISON: None available. TECHNIQUE: CT angiogram of the chest performed with 80 mL Isovue-370 intravenous contrast according to pulmonary embolism protocol. CT of the abdomen and pelvis with contrast was performed. Coronal and sagittal reformatted images were submitted. FINDINGS: Lungs: There is no focal airspace opacity. Pleural spaces: There is no pneumothorax or pleural effusion. Mediastinum / heart: There is no lymph node enlargement. The heart and pericardium are normal. Vascular: The SVC and IVC are normal. The aorta is normal caliber with left-sided arch. The main and branch pulmonary arteries are normal in caliber. No filling defect is seen. Hepatobiliary: There is hypoattenuation of the liver relative to the spleen, suggesting hepatic steatosis. No gallbladder calculus, gallbladder wall thickening or biliary dilation. Pancreas: Normal without peripancreatic fluid collection. Spleen: Normal attenuation without mass. Normal in size. Adrenal glands: Normal in morphology without mass lesion. : Normal appearance of the kidneys with symmetric parenchymal enhancement. No bladder or deep pelvic soft tissue abnormality is seen. GI: No obstruction or abnormal bowel wall thickening. Normal appendix. Vascular: The aorta and inferior vena cava are normal. Other: No free air or abnormal fluid collection. Bones: The bones are normal. Procedure Note Michael Newby MD - 11/07/2021 INDICATION: 26 year old male with palpitations and abdominal pain COMPARISON: None available. TECHNIQUE: CT angiogram of the chest performed with 80 mL Isovue-370 intravenous contrast according to pulmonary embolism protocol. CT of the abdomen and pelvis with contrast was performed. Coronal and sagittal reformatted images were submitted. FINDINGS: Lungs: There is no focal airspace opacity. Pleural spaces: There is no pneumothorax or pleural effusion. Mediastinum / heart: There is no lymph node enlargement. The heart and pericardium are normal. Vascular: The SVC and IVC are normal. The aorta is normal caliber with left-sided arch. The main and branch pulmonary arteries are normal in caliber. No filling defect is seen. Hepatobiliary: There is hypoattenuation of the liver relative to the spleen, suggesting hepatic steatosis. No gallbladder calculus, gallbladder wall thickening or biliary dilation. Pancreas: Normal without peripancreatic fluid collection. Spleen: Normal attenuation without mass. Normal in size. Adrenal glands: Normal in morphology without mass lesion. : Normal appearance of the kidneys with symmetric parenchymal enhancement. No bladder or deep pelvic soft tissue abnormality is seen. GI: No obstruction or abnormal bowel wall thickening. Normal appendix. Vascular: The aorta and inferior vena cava are normal. Other: No free air or abnormal fluid collection. Bones: The bones are normal. IMPRESSION 1. No evidence of pulmonary embolism. 2. Hepatic steatosis. I, Michael Newby, have personally reviewed the images and I agree with this report. *Reading Radiologist: Michael Newby on 11/07/2021 at 10:51 AM Luz Elena Krishna MD CT ORDERABLES * (ABNORMAL) URINALYSIS REFLEX TO MICROSCOPIC NO CULTURE (11/07/2021 2:14 AM CDT) Color UA Lucía(A) Straw, Yellow 11/07/2021 2:24 AM CDT [facility] Clarity UA Slt Cloudy(A) Clear 11/07/2021 2:24 AM CDT [facility] Glucose UA Negative Negative 11/07/2021 2:24 AM CDT [facility] Bilirubin UA Negative Negative 11/07/2021 2:24 AM CDT [facility] Ketone UA 2+(A) Negative 11/07/2021 2:24 AM CDT [facility] Specific [place] UA 1.031(H) 1.005 - 1.030 11/07/2021 2:24 AM CDT [facility] Blood UA 3+(A) Negative 11/07/2021 2:24 AM CDT [facility] pH UA 5.0 5.0 - 8.0 pH 11/07/2021 2:24 AM CDT [facility] Protein UA 2+(A) Negative 11/07/2021 2:24 AM CDT [facility] Urobilinogen UA Negative Negative mg/dL 11/07/2021 2:24 AM CDT [facility] Nitrite UA Negative Negative 11/07/2021 2:24 AM CDT [facility] Leukocyte UA Negative Negative 11/07/2021 2:24 AM CDT [facility] Urine Microscopy Urine microscopy to follow 11/07/2021 2:24 AM CDT [facility] Urine URINE SPECIMEN OBTAINED BY CLEAN CATCH PROCEDURE / Unknown Collection / Unknown 11/07/2021 2:14 AM CDT 11/07/2021 2:19 AM CDT Narrative [facility] - 11/07/2021 2:24 AM CDT Jana Sanchez APRN-RADIO ELECTRONICS TECHNICIAN LAB - URINALY SIS ORDERABLES [facility] [address] [place] [address] * URINE MICROSCOPIC ONLY (11/07/2021 2:14 AM CDT) RBC UA 3-5 0 - 5 # /hpf 11/07/2021 2:27 AM CDT [facility] WBC UA 0-5 0 - 5 # /hpf 11/07/2021 2:27 AM CDT [facility] Bacteria UA None Seen None Seen 11/07/2021 2:27 AM CDT [facility] Squamous Epithelial Cells 0-2 0 - 5 /hpf 11/07/2021 2:27 AM CDT [facility] Mucus UA 4+ /LPF 11/07/2021 2:27 AM CDT [facility] Urine URINE SPECIMEN OBTAINED BY CLEAN CATCH PROCEDURE / Unknown Collection / Unknown 11/07/2021 2:14 AM CDT 11/07/2021 2:19 AM CDT Narrative [facility] - 11/07/2021 2:27 AM CDT Jana Sanchez COMPUTER INFORMATION SYSTEMS INSTRUCTOR-RADIO ELECTRONICS TECHNICIAN LAB - URINALY SIS ORDERABLES Performing Organization Address [facility]/ZIP Co de Phone Number [facility] [address] [place] [phone] * TSH REFLEX FREE T4 (11/07/2021 1:36 AM CDT) TSH 1.046 0.350 - 4.940 uIU/mL 11/07/2021 2:40 AM CDT [facility] Blood BLOOD SPECIMEN / Unknown Venipuncture / Unknown 11/07/2021 1:36 AM CDT 11/07/2021 1:49 AM CDT Luz Elena Krishna MD LAB - CHEMISTRY LI FRAGOSO Performing Organization Address [facility] Co de Phone Number [facility] [address] [place] [phone] * TROPONIN I (11/07/2021 1:36 AM CDT) Only the most recent of2 resultswithin the time period is included. Troponin I <0.010 <0.038 ng/mL 11/07/2021 2:40 AM CDT [facility] Blood BLOOD SPECIMEN / Unknown Venipuncture / Unknown 11/07/2021 1:36 AM CDT 11/07/2021 1:49 AM CDT Luz Elena Krishna MD LAB - CHEMISTRY LI FRAGOSO Performing Organization Address City/[facility]/ZIP Co de Phone Number [facility] [address] [place] [phone] * B-TYPE NATRIURETIC PEPTIDE (11/07/2021 1:36 AM CDT) BNP <10 <=100 pg/mL 11/07/2021 2:26 AM CDT [facility] Blood BLOOD SPECIMEN / Unknown Venipuncture / Unknown 11/07/2021 1:36 AM CDT 11/07/2021 1:49 AM CDT Narrative [facility] - 11/07/2021 2:26 AM CDT A cutoff of 100 pg/mL has been demonstrated to provide the maximal combination of sensitivity, specificity, and negative predictive value for contributing to the diagnosis of congestive heart failure (CHF) only. A B-Type Natriuretic Peptide (BNP) value greater than or equal to 100 pg/mL is consistent with a diagnosis of CHF in the appropriate clinical setting. False positive results are more common in females greater than 75 years of age. Blood concentrations of natriuretic peptides may also be elevated in patients with myocardial infarction and in patients who are candidates for or are undergoing renal dialysis. Luz Elena Krishna MD LAB - CHEMISTRY LI FRAGOSO [facility] Organization Address City/State/ZIP Co de Phone Number [facility] [address] [place] [address] * XR CHEST PA AND LATERAL (11/06/2021 3:37 PM CDT) Anatomical Region Laterality Modality Chest Radiographic Shavon ging 11/06/2021 3:41 PM CDT Impressions 11/06/2021 3:41 PM CDT No active disease. *Reading Radiologist: Victoriano Epps on 11/06/2021 at 3:41 PM Narrative 11/06/2021 3:41 PM CDT Chest 2 views INDICATION: Palpitations Findings: There are no old studies available for comparison. The lungs are clear of infiltrate. There are no pleural effusions or pneumothorax. The heart size and pulmonary vascularity are normal. Procedure Note Victoriano Epps MD - 11/06/2021 Chest 2 views INDICATION: Palpitations Findings: There are no old studies available for comparison. The lungs are clear of infiltrate. There are no pleural effusions or pneumothorax. The heart size and pulmonary vascularity are normal. IMPRESSION No active disease. *Reading Radiologist: Victoriano Epps on 11/06/2021 at 3:41 PM Jana Sanchez APRN-RADIO ELECTRONICS TECHNICIAN DIAGNOSTIC IM AGING ORDERABLES * (ABNORMAL) D-DIMER (11/06/2021 3:14 PM CDT) D-Dimer 1.55(H) 0.27 - 0.50 ug/mL FEU 11/06/2021 3:29 PM CDT [facility] Blood BLOOD SPECIMEN / Unknown Venipuncture / Unknown 11/06/2021 3:14 PM CDT 11/06/2021 3:14 PM CDT [facility] - 11/06/2021 3:29 PM CDT In the absence of clinical symptoms, a value less than or equal to 0.5 mcg/mL FEU significantly decreases the probability of PE/DVT (negative predictive value >95%). 1 mcg/ml FEU = 1 Fibrinogen Equivalent Unit (approximates 0.5 mcg/mL of D- dimer). Jana AZAR LAB - COAGULA TION ORDERABLES [facility] [address] [place] [address] * (ABNORMAL) CBC W AUTO DIFFERENTIAL (11/06/2021 3:14 PM CDT) WBC 10.5 4.4 - 10.7 x10E9/L 11/06/2021 3:18 PM CDT [facility] WBC Corrected 11/06/2021 3:18 PM CDT [facility] RBC 5.49(H) 3.80 - 5.40 x10E12/L 11/06/2021 3:18 PM CDT [facility] Hemoglobin 17.3 12.0 - 17.6 gm/dL 11/06/2021 3:18 PM CDT [facility] Hematocrit 49.6 35.2 - 51.7 % 11/06/2021 3:18 PM CDT [facility] MCV 90.3 80.7 - 98.3 fl 11/06/2021 3:18 PM CDT [facility] MCH 31.5 26.7 - 34.0 pg 11/06/2021 3:18 PM CDT [facility] MCHC 34.9 30.8 - 35.9 gm/dL 11/06/2021 3:18 PM CDT [facility] Platelet Count 222 153 - 416 x10E9/L 11/06/2021 3:18 PM CDT [facility] RDW-CV 11.9(L) 12.1 - 14.9 % 11/06/2021 3:18 PM CDT [facility] MPV 9.8 9.4 - 12.9 fl 11/06/2021 3:18 PM CDT [facility] Neutrophils % 62.8 44.0 - 73.0 % 11/06/2021 3:18 PM CDT [facility] Lymphocytes % 23.6 20.0 - 43.0 % 11/06/2021 3:18 PM CDT [facility] Monocytes % 12.0 5.0 - 13.0 % 11/06/2021 3:18 PM CDT [facility] Eosinophils % 0.6 0.0 - 6.0 % 11/06/2021 3:18 PM CDT [facility] Basophils % 0.7 0.0 - 2.0 % 11/06/2021 3:18 PM CDT [facility] Immature Granulocytes 0.3 0 - 1 % 11/06/2021 3:18 PM CDT [facility] Neutrophil Absolute 6.62 2.01 - 7.14 x10E9/L 11/06/2021 3:18 PM CDT [facility] Lymphocytes Absolute 2.48 1.07 - 3.94 x10E9/L 11/06/2021 3:18 PM CDT [facility] Monocytes Absolute 1.26(H) 0.26 - 1.07 x10E9/L 11/06/2021 3:18 PM CDT [facility] Eosinophils Absolute 0.06 0 - 0.47 x10E9/L 11/06/2021 3:18 PM CDT [facility] Basophils Absolute 0.07 0 - 0.08 x10E9/L 11/06/2021 3:18 PM CDT [facility] Immature Granulocytes Absolute 0.03 0.00 - 0.06 x10E9/L 11/06/2021 3:18 PM CDT [facility] nRBC Auto 0 /100 WBC 11/06/2021 3:18 PM CDT [facility] Blood BLOOD SPECIMEN / Unknown Venipuncture / Unknown 11/06/2021 3:14 PM CDT 11/06/2021 3:14 PM CDT Jana Sanchez COMPUTER INFORMATION SYSTEMS INSTRUCTOR-RADIO ELECTRONICS TECHNICIAN LAB - HEMATOL OGY ORDERABLES [facility] [address] [place], [place] [id number] * (ABNORMAL) COMPREHENSIVE METABOLIC PANEL (11/06/2021 3:14 PM CDT) Glucose 108(H) 70 - 105 mg/dL 11/06/2021 3:32 PM CDT [facility] Sodium 139 136 - 145 mmol/L 11/06/2021 3:32 PM CDT [facility] Potassium 3.7 3.5 - 5.1 mmol/L 11/06/2021 3:32 PM CDT [facility] Chloride 103 98 - 107 mmol/L 11/06/2021 3:32 PM CDT [facility] CO2 23 23 - 31 mmol/L 11/06/2021 3:32 PM CDT [facility] Calcium 9.7 8.4 - 10.4 mg/dL 11/06/2021 3:32 PM CDT [facility] Anion Gap 13 8 - 18 mmol/L 11/06/2021 3:32 PM CDT [facility] BUN 13 8.9 - 20.6 mg/dL 11/06/2021 3:32 PM CDT [facility] Creatinine 0.93 0.72 - 1.25 mg/dL 11/06/2021 3:32 PM CDT [facility] Alkaline Phosphatase 75 40 - 150 U/L 11/06/2021 3:32 PM CDT [facility] ALT 76(H) 0 - 61 U/L 11/06/2021 3:32 PM CDT [facility] AST 56(H) 5 - 34 U/L 11/06/2021 3:32 PM CDT [facility] Protein Total 8.8(H) 6.4 - 8.3 gm/dL 11/06/2021 3:32 PM CDT [facility] Albumin 4.8 3.5 - 5.2 gm/dL 11/06/2021 3:32 PM CDT [facility] Bilirubin Total 0.9 0.2 - 1.2 mg/dL 11/06/2021 3:32 PM CDT [facility] eGFR by CKD-EPI >90 >=90 mL/min/1.7 3 m2 11/06/2021 3:32 PM CDT [facility] Blood BLOOD SPECIMEN / Unknown Venipuncture / Unknown 11/06/2021 3:14 PM CDT 11/06/2021 3:14 PM CDT Jana Tory Daniel DELA CRUZ-RADIO ELECTRONICS TECHNICIAN LAB - TOOL AND MACHINE MAINTAINER RY ORDERABLES Performing Organization Address [facility] Co de Phone Number [facility] [address] [place] [phone] * MAGNESIUM BLOOD (11/06/2021 3:14 PM CDT) Magnesium 2.0 1.6 - 2.6 mg/dL 11/06/2021 3:32 PM CDT [facility] Blood BLOOD SPECIMEN / Unknown Venipuncture / Unknown 11/06/2021 3:14 PM CDT 11/06/2021 3:14 PM CDT Jana Sanchez APRNTARAV[facility] LAB - TOOL AND MACHINE MAINTAINER RY ORDERABLES Performing Organization Address [facility] Co de Phone Number [facility] [address] [place] [phone] * EKG 12-LEAD (11/06/2021 2:36 PM CDT) Ventricular Rate 96 BPM [facility] Atrial Rate 96 BPM [facility] P-R Interval 160 ms [facility] QRS Duration ms 84 ms [facility] Q-T Interval ms 356 ms [facility] QTC Calculation (Bezet) 449 ms [facility] Calculated P [place] 34 degrees [facility] Calculated R [place] -17 degrees [facility] Calculated T [place] 42 degrees [facility] Interpretation EKG NORMAL SINUS RHYTHM WITH SINUS ARRHYTHMIA MINIMAL VOLTAGE CRITERIA FOR LVH, MAY BE NORMAL VARIANT ( R in aVL ) BORDERLINE ECG NO PREVIOUS ECGS AVAILABLE Confirmed by DO CASTILLO STEPHANIE ([id number]) on 11/07/2021 5:04:08 PM [facility] 11/06/2021 2:36 PM CDT 11/07/2021 5:04 PM CDT Jana Sanchez APRN-RADIO ELECTRONICS TECHNICIAN ECG ORDERABLE [facility]
--- OUTSIDE RECORDS SUMMARY | 2024-07-29 17:02 | XMS_ITS ---
Author Organization [facility] Address [address] [place] [address] Care Team Providers Care Robotic Welder Name Role Phone Esvin San Primary Care Provider Joesph Mckenna Unavailable [phone] Allergies No Known Allergies Reason For Referral Reason CPPS, blood in urine , last saw urology under old insurance, unsure if will take new insurance Diagnosis 1 Chronic prostatitis (N41.1) Diagnosis 2 Gross hematuria (R31 .0) Referral Organization [facility] Referring Provider First Name Joesph Referring Provider Last Name Bala [facility]erring [facility] Referred Provider Specialty Urology General Notes Citlalli Katina GAUTHIER 06/12/2024 10:35:57 AM >Inge was seen by urology at [facility] April 2023. [facility] (and the [facility] Physician's website) indicates they are in network with [facility]. Will fax referral there when note from visit is available. Clinical Notes [facility], Dr. Jose J Crystal, [address], [address], [address] [place] [address], , Referral Priority Routine REASON FOR VISIT last seen 04/02/23--sore throat and blood in urine Medications Medication SIG (Take, Route, Frequency, Duration) Notes Start Date End Date Status Ciprofloxacin HCl 500 MG 1 tablet Orally every 12 hrs for 10 days Active Influenza Vac Split Quad 0.5 ML as directed Intramuscular once Not-Taking Influenza Vac Subunit Quad 0.5 ML as directed Intramuscular Not-Taking Influenza Vac Subunit Quad 0.5 ML as directed Intramuscular once for 1 days Not-Taking Lisinopril-hydroCHLOROth iazide 20-25 MG TAKE 1 TABLET BY MOUTH EVERY DAY for 90 Active Influenza Vac Subunit Quad 0.5 ML as directed Intramuscular once for 1 days Not-Taking Influenza Vac Subunit Quad 0.5 ML as directed Intramuscular once for 1 days Not-Taking Social History Tobacco Use: Social History Observation Description Date Details (start date - stop date) Never Smoker NA - NA Sex Assigned At : Social History Observation Description Sex Assigned At Male Alcohol Screen (Audit-C) Question Answer Notes Did you have a drink containing alcohol in the p ast year? No Tobacco Control (Standard) Question Answer Notes Tobacco use: Nonsmoker Vital Signs Height 73 in 06/11/2024 Weight 326 lb 4 oz lbs 06/11/2024 BMI 43.04 kg/m2 06/11/2024 Temperature 98.8 degrees Fahrenheit 06/11/19 25 Heart Rate 115 /min 06/11/2024 Oximetry 98 % 06/11/2024 Blood pressure systolic 120 mm Hg 06/11/19 25 Blood pressure diastolic 84 mm Hg 025 Respiratory Rate 20 /min 06/11/2024 Encounters Encounter Location Date Provider Diagnosis [address] [address] 06/11/2024 Joesph Mckenna Nutritional counseling Z71.3 ; Sore throat J02.9 and Gross hematuria R31.0 Assessments Encounter Date Diagnosis (ICD Code) Assessment Notes Treatment Notes Treatment Clinical Notes Section Notes 06/11/2024 Nutritional counseling (ICD-10 - Z71.3) 06/11/2024 Sore throat (ICD-10 - J02.9) 06/11/2024 Gross hematuria (ICD-10 - R31.0) Plan Of Treatment Medication Medication Name Sig Start Date Stop Date Notes Ciprofloxacin HCl 500 MG 1 tablet Orally every 12 hrs for 10 days Referrals Referral Date Details 06/11/2024 06/11/2024, CPPS, bl ood in urine, last saw urology under old insurance, unsure if will take new insurance, [facility] Next Appt Details Follow Up: 4 Weeks, Reason: Progress Notes * Esteban TORRESOB:1995 ( 29 yo M)Acc No.[id number]:06/11/2024 UNLOCKED PROGRESS NOTE Progress Notes Patient: Inge ONTIVEROS Provider: Armando Mckenna, MSN, AGPCNP-BC :1995 A ge:29 Y S ex:Male Date:06/11/2024 Address:[address] [place] [address] [id number] Pcp:Esvin San Check In:03:46 PM SOFTWARE TEST SPECIALIST Subjective: * Chief Complaints: * 1 . Last seen 04/02/23--sore throat and blood in urine. * HPI: I nterim History: Emergency room visit Y es. Was hospitalized N o. D epression Screening: PHQ-9 L ittle interest or pleasure in doing things?Not at all F eeling down, depressed, or hopeless N ot at all T rouble falling or staying asleep, or sleeping too much N ot at all F eeling tired or having little energy S everal days P oor appetite or overeating N ot at all F eeling bad about yourself or that you are a failure, or have let yourself or your family down N ot at all T rouble concentrating on things, such as reading the newspaper or watching television N ot at all M oving or speaking so slowly that other people could have noticed; or the opposite, being so fidgety or restless that you have been moving around a lot more than usual N ot at all T houghts that you would be better off or of hurting yourself in some way N ot at all T otal Score 1 I nterpretation M inimal Depression S creening: [place] Suicide Severity Rating Scale (LF) D o you want to initiate with S creener form 1 . Wish to be : Have you wished you were or wished you could go to sleep and not wake up? N o 2 . Suicidal Thoughts: Have you actually had any thoughts of killing yourself? N o 6 . Suicide Behavior Question: Have you ever done anything,started to do anything, or prepared to end your life? N o I nterpretation: L ow Risk C SSRS Interpretation and Follow Up Plan: CSSRS Interpretation and Follow Up Plan C SSRS Screen documented using SF Y es R isk Disposition from SF L ow - No Follow Up Plan Required F ollow Up Plan N o Follow Up Plan required at this time. * Medical History: H ypertension, Palpitations, Hematochezia. * Surgical History: D enies Past Surgical History. * Hospitalization/Major Diagno stic Procedure: D enies Past Hospitalization. * Family History: F ather: alive, Alzheimer's, alcoholic dementia. M other: alive, Anxious, depression, bipolar, asthma, heart issues. 1 sister(s) - healthy. 1 son(s) , 1 daughter(s) - healthy. . * Social History: P [facility] Social History: L iving Arrangement L iving Arrangement: I ndependent Living L iving with: G randparent(s),Sister,Other:,Parent(s) I s this a supportive environment? 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 Y es Alcohol Screen (Audit-C) D id you have a drink containing alcohol in the past year? N o M iscellaneous: M ethod of learning P referred method of learning: R eading * Medications: T aking Ciprofloxacin HCl 500 MG Tablet 1 tablet Orally every 12 hrs , Taking Lisinopril-hydroCHLOROthiazide 20-25 MG Tablet TAKE 1 TABLET BY MOUTH EVERY DAY , Not-Taking Influenza Vac Split Quad 0.5 ML Suspension Prefilled Syringe as directed Intramuscular once , Not-Taking Influenza Vac Subunit Quad 0.5 ML Suspension Prefilled Syringe as directed Intramuscular , Not-Taking Influenza Vac Subunit Quad 0.5 ML Suspension Prefilled Syringe as directed Intramuscular once , Not-Taking Influenza Vac Subunit Quad 0.5 ML Suspension Prefilled Syringe as directed Intramuscular once , Not-Taking Influenza Vac Subunit Quad 0.5 ML Suspension Prefilled Syringe as directed Intramuscular once * Allergies: N .K.D.A. Objective: * Vitals: I nitials: kjs, Wt:326 lb 4 oz, Ht: 73, BMI:43.04, BP:120/84, HR:115, Oxygen sat %:98, Temp:98.8, RR:20, Pain scale:2. Assessment: * Assessment: 1. S ore throat - J02.9 2 . N utritional counseling - Z71.3 (Primary) ? 3 . G ross hematuria - R31.0 Plan: * Treatment: 2. O thers Referral To: [facility]rology Reason:CPPS, blood in urine, last saw urology under old insurance, unsure if will take new insurance * Recommended Wellness and Pre vention Guidelines: * S tatus A lert L ast Done N ext Due A ction Taken N ONCOMPLIANT H IV screening - 0 06/11/2024 - N ONCOMPLIANT I nfluenza vaccine (high risk) 1 0 06/11/2024 - * Procedure Codes: 3 008F BODY MASS INDEX DOCD, [address] MEDICAL NUTRITION, [place], [place], 1036F TOBACCO NON-USER * Preventive Medicine: Counseling: C are goal follow-up plan: BMI management provided Y es Above Normal BMI Follow-up L ifestyle education regarding diet * Follow Up: 4 Weeks * * Electronic signature of Dwight Mckenna , FLANGER, [phone] on 07/29/2024 at 05:02 PM SOFTWARE TEST SPECIALIST Sign off status: Pending * Provider: Armando Mckenna, MSN, AGPCNP-BC Date: 0 06/11/2024 Generated for Printing/Faxing/eTransmitting on: 0 07/29/2024 05:02 PM SOFTWARE TEST SPECIALIST History and Physical Notes * HPI (History of Present Illness) Category Sub-Category Detail Notes Category Not es Interim History Was hospitalized No Emergency room visit Yes Depression Screening PHQ-9 Little inte rest or pleasure in doing things: Not at all Feeling down, depressed, or hopeless: No t at all Trouble falling or staying asleep, or sl eeping too much: Not at all Feeling tired or having little energy: S everal days Poor appetite or overeating: Not at all Feeling bad about yourself o r that you are a failure, or have let yourself or your family down: Not at all Trouble concentrating on thi ngs, such as reading the newspaper or watching television: Not at all Moving or speaking so slowly that other people could have noticed; or the opposite, being so fidgety or restless that you have been moving around a lot more than usual: Not at all Thoughts that you would be b calista off or of hurting yourself in some way: Not at all Total Score: 1 Interpretation: Minimal Depression Screening [place] Suicide Sev erity Rating Scale (LF) Do you want to initiate with: Screener form 1. Wish to be : Have you wished you were or wished you could go to sleep and not wake up?: No 2. Suicidal Thoughts: Have you actually had any thoughts of killing yourself?: No 6. Suicide Behavior Question: Have you ever done anything,started to do anything, or prepared to end your life?: No Interpretation:: Low Risk CSSRS Interpretation and Follow Up Plan CSSRS Interpretation and Follow Up Plan CSSRS Screen documented using SF: Yes Risk Disposition from SF: Low - No Follo w Up Plan Required Follow Up Plan: No Follow Up Plan requir ed at this time. Consultation Request Notes Referral Date Referring Provider Referred Provider Not lonnie 06/11/2024 Joesph Mckenna [facility], CPPS, blood in urine, last saw urology under old insurance, unsure if will take new insurance
--- OUTSIDE RECORDS SUMMARY | 2024-07-29 17:02 | XMS_ITS ---
Author Organization [facility] Address [address] [place] [address] Care Team Providers Care Carpet Or Rug Layer Helper Name Role Phone Esvin San Primary Care Provider REASON FOR VISIT check up Social History Sex Assigned At : Social History Observation Description Sex Assigned At Male Encounters Encounter Location Date Provider Diagnosis [address] [address] 12/12/2023 Esvin San Plan Of Treatment No Information Progress Notes * Esteban TORRESOB:1995 ( 29 yo M)Acc No.[id number]:12/12/2023 UNLOCKED PROGRESS NOTE Progress Notes Patient: Inge ONTIVEROS Provider: Reshma San :1995 A ge:28 Y S ex:Male Date:12/12/2023 Address:[address] [facility] Subjective: * Chief Complaints: * 1 . Check up. * Medical History: Objective: * Vitals: Assessment: Plan: * Treatment: * * Electronic signature of Ben San , [id number] on 07/29/2024 at 05:02 PM CONDUCTOR YARD Sign off status: Pending * Provider: Reshma San Date: 0 12/12/2023 Generated for Avery ortega/Delroy/eTransmitting on: 07/29/2024 05:02 PM CONDUCTOR YARD
--- OUTSIDE RECORDS SUMMARY | 2024-07-29 17:02 | XMS_ITS | Clinical Summary ---
Author Organization [facility] Address [address] [place] [address] Care Team Providers Care Cleaning Supervisor Name Role Phone Esvin San MD Primary Care Provider [phone] Allergies No known active allergies Medications No known medications Active Problems Problem Noted Date Diagnosed Date Microscopic hematuria 04/04/2023 Pelvic pain 04/04/2023 Medical History Medical History Date Comments IBS (irritable bowel syndrome) HTN (hypertension) Family History Medical History Relation Name Comments Prostate cancer Other Paternal great uncle Relation Name Status Comments Other Paternal great uncle Social History Tobacco Use Types Packs/Day Years Used Date Smoking Tobacco: Never Tobacco Cessation:Counseling Given: Not Answered AUDIT-C Answer Date Recorded Q1: How often do you have a drink containing alc ohol? 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 Gender Identity Not on file Sexual Orientation Not on file Obstetrics History Last Filed Vital Signs Vital Sign Reading Time Taken Comments Blood Pressure 130/65 09/12/2022 4:18 AM CDT Pulse 83 09/12/2022 4:17 AM CDT Temperature 36.6 C (97.9 F) 09/12/2022 4:17 AM CDT Respiratory Rate 15 09/12/2022 4:17 AM CDT Oxygen Saturation 99% 09/12/2022 4:17 AM CDT Inhaled Oxygen Concentration - - Weight 147.4 kg (325 lb) 09/12/2022 4:17 AM CDT Height - - Body Mass Index - - Plan of Treatment Health Maintenance Due Date Last Done Comments Depression Screening 1995 Hepatitis C Screening 1995 Varicella Vaccines (2 of 2 - 2-dose childhood series) 05/19/2012 05/19/1997 Regular Well Visit/Exam 18-64 2014 DTaP/Tdap/Td Vaccine (7 - Td or Tdap) 08/28/2017 08/29/2007, 05/16/2001, 08/13/1997, Additional history exists Covid-19 Vaccine ( season) 2024 10/09/2020 Influenza Vaccine (#1) 2024 4, 04/21/2012, 04/21/2012, Additional history exists Hepatitis B Screening Completed 02/26/1997 , 02/26/1997, 1995, Additional history exists HPV Vaccines Completed 10/23/2012, 04/03, 09/24/2011 Pneumococcal vaccine <65 Aged Out No longer eligible based on patient's age to complete this topic Insurance [employer] [facility] [employer] [facility] Care Teams Cleaning Supervisor Relationship Specialty Start Date End Date Esvin San MD [address] [place] [address] PCP - General Internal Medicine 03/29/23
--- OUTSIDE RECORDS SUMMARY | 2024-07-29 17:02 | XMS_ITS | Referral Summary ---
Author Organization [facility] Address [address] [place] [address] Care Team Providers Care Hand Pattern Marker Name Role Phone Unavailable Primary Care Provider Unavailabl e Source Comments [facility],non-owned Affiliates and Associated Physician Practices is amultiple site organization consisting of ambulatory clinics and hospital sitesin [place], [place], [place] and [place]. This disclosure is being madepursuant to the Care Everywhere program and may not contain all information available regarding this patient. Last updated 18.Food[employer]ee Allergies No known active allergies Medications * Be aware that medications may not be up to date on this document. Alwaysverify current medications with the patient. Medication Sig Dispensed Refills Start Date End Date Status amoxicillin-clavula lamar (AUGMENTIN) 875-125 MG tablet Take 1 Tab by mouth 2 times daily with morning and evening meal. 20 Tab 0 09/09/2013 Active albuterol HFA (PROVENTIL;VENTOLIN ;PROAIR) 108 (90 BASE) MCG/ACT inhaler Inhale 2 Puffs by mouth every 4 hours as needed for Wheezing or Cough. OK TO SUBSTITUTE ANY BRAND. 1 Inhaler 0 09/09/2013 Active Spacer/Aero-Holding Chambers (AEROCHAMBER PLUS KIM-VU) MISC Use 1 Container every 4 hours as needed. 1 Each 1 09/09/2013 Active predniSONE (DELTASONE) 20 MG tablet 2 tabs po bid for 5 days 20 Tab 0 09/09/2013 Active methylphenidate (RITALIN) 10 MG tablet Take 1 Tab by mouth Every morning and lunchtime. 60 Tab 0 12/22/2013 Active miconazole (LOTRIMIN AF) 2 % powder Apply to affected area 2 times daily. 1 Bottle 3 03/19/2014 Active hydrOXYzine HCl (ATARAX) 50 MG tablet Take 1 (one) tablet by mouth 3 times daily as needed for Itching 10 tablet 11/07/2021 Active hydroCHLOROthiazide (HYDRODIURIL) 25 MG tablet Take 1 (one) tablet by mouth once daily 30 tablet 11/07/2021 Active Active Problems Problem Noted Date Diagnosed Date ADD (attention deficit disorder) 04/21/2012 BMI (body mass index), pediatric, 95-99% for age 1104/21/2012 Immunizations Name Administration Dates Next Due DTaP VACCINE IM (6wk-6yrs) 05/16/2001,,1996,09/22,1996 HEP A PEDS 2 DOSE 09/27/2004,06/24/2003 HEP B VACCINE, PED/ADOL 02/26/1997,1996, HIB-PRP-T 4 DOSE 08/13/1997, 7,1996,07/10 Human Papilloma Virus Rafaela valent Vaccine 10/23/2012,04/21/2012 Human Papilloma Virus Vaccine 09/24/2011 INFLUENZA VACCINE 06/08/2002,04/18/2002 INFLUENZA VACCINE, QUADR. (F LUZONE; FLULAVAL; FLUARIX; AFLURIA QUADRIVALENT; 6MO+), 0.5 ML (IIV4) 03/19/2014 Influenza Nasal 04/21/2012 MENINGOCOCAL MENINGITIS 08/29/2007 MENINGOCOCCAL CONJUGATE (MCV4P) 04/21/2012 MMR 05/16/2001,05/19/1997 POLIO IPV 05/16/2001 POLIO OPV 08/13/1997, 7,1996,07/10 PPD 05/16/2001 TDAP (7yrs+) 08/29/2007 VARICELLA 05/19/1997 Social History Tobacco Use Types Packs/Day Years [...] Mass Index 45.52 11/06/2021 2:23 PM CDT Plan of Treatment Not on file
--- OUTSIDE RECORDS SUMMARY | 2024-07-29 17:02 | XMS_ITS ---
Author Organization [facility] Address [address] [place] [address] Care Team Providers Care Action Finisher Name Role Phone Esvin San Primary Care Provider Allergies No Known Allergies REASON FOR VISIT possible sinus infection/ no fever Medications Medication SIG (Take, Route, Frequency, Duration) Notes Start Date End Date Status Amoxicillin-Pot Clavulanate 875-125 MG 1 tablet with food Orally every 12 hrs for 7 days 07/28/2024 08/03/2024 Active Lisinopril-hydroCHLOROthia zide 20-25 MG TAKE 1 TABLET BY MOUTH EVERY DAY for 90 Active Social History Tobacco Use: Social History Observation Description Date Details (start date - stop date) Never Smoker NA - NA Sex Assigned At : Social History Observation Description Sex Assigned At Male Tobacco Control (Standard) Question Answer Notes Tobacco use: Nonsmoker Vital Signs Weight 327.4 lbs 07/28/2024 Height 73 in 07/28/2024 BMI 43.19 kg/m2 07/28/2024 Blood pressure systolic 110 mm Hg 07/28/19 25 Blood pressure diastolic 70 mm Hg 025 Heart Rate 107 /min 07/28/2024 Oximetry 97 % 07/28/2024 Respiratory Rate 16 /min 07/28/2024 Encounters Encounter Location Date Provider Diagnosis [address] [place] [address] 07/28/2024 Esvin San Acute sinusitis J01. 90 ; Gross hematuria R31.0 ; Essential (primary) hypertension I10 ; Exposure to potential infection Z20.9 ; Nutritional counseling Z71.3 ; Lipid screening Z13.220 and Screening for diabetes mellitus Z13.1 Assessments Encounter Date Diagnosis (ICD Code) Assessment Notes Treatment Notes Treatment Clinical Notes Section Notes 07/28/2024 Acute sinusitis (ICD-10 - J01.90) LIKELY POST-VIRAL BACTERIAL SINUSITIS. 07/28/2024 Gross hematuria (ICD-10 - R31.0) RECURRENT POSSIBLE HEMATURIA DURING EPISODES OF URI SUGGESTS IGA NEPHROPATHY. WILL PURSUE FURTHER EVALUATION IF HIS U/A CONFIRMS BLOOD, PROTEIN, OR CASTS. 07/28/2024 Essential (primary) hypertension (ICD-10 - I10) 07/28/2024 Exposure to potential infection (ICD-10 - Z20.9) 07/28/2024 Nutritional counseling (ICD-10 - Z71.3) 07/28/2024 Lipid screening (ICD-10 - Z13.220) 07/28/2024 Screening for diabetes mellitus (ICD-10 - Z13.1) 07/28/2024 Other Learning About the Safe Use of Antibiotics material was discussed. Pt was educated on use of antibiotic medication including dosing, side effects, adverse effects and anticipated response. Pt was also educated on importance of completing full course of treatment as ordered. Patient voiced understanding of all. Plan Of Treatment Medication Medication Name Sig Start Date Stop Date Notes Amoxicillin-Pot Clavulanate 875-125 MG 1 tablet with food Orally every 12 hrs for 7 days 07/28/2024 08/03/2024 Treatment Notes Assessment Notes Other Learning About the S afe Use of Antibiotics material was discussed. Pt was educated on use of antibiotic medication including dosing, side effects, adverse effects and anticipated response. Pt was also educated on importance of completing full course of treatment as ordered. Patient voiced understanding of all. Future Test Test Name Order Date HIV Screen *HIV 1, 2 Ab, p24 Ag ([id number]) 07/28/2024 Chlamydia/Gonococcus/Mycoplasma genitali um, JACY, Urine 07/28/2024 Hemoglobin A1c* 07/28/2024 CBC With Differential/Platelet* 07/28/19 C-Reactive Protein, Quant 07/28/2024 Hepatitis C Virus Antibody w/Rflx to Tien ntitative Real-time PCR ([id number]) 07/28/2024 Lipid Panel* 07/28/2024 CMP 14 Comprehensive Metabolic Panel* UA/M w/rflx Culture, Routine 07/28/2024 Next Appt Details Follow Up: 2 Weeks, Reason: confirm resolution, review labs Progress Notes * Esteban TORRESOB:1995 ( 29 yo M)Acc No.[id number]:07/28/2024 Progress Notes Patient: Inge ONTIVEROS Provider: Reshma San :1995 A ge:29 Y S ex:Male Date:07/28/2024 Address:[address] [place] [address] [id number] Subjective: * Chief Complaints: * P ossible sinus infection/ no fever * HPI: D epression Screening: PHQ-9 L ittle interest or pleasure in doing things?Not at all F eeling down, depressed, or hopeless N ot at all T rouble falling or staying asleep, or sleeping too much N ot at all F eeling tired or having little energy N ot at all P oor appetite or overeating N ot [...] N ot at all T otal Score 0 S creening: Acra Suicide Severity Rating Scale (LF) D o [...] Follow Up Plan required at this time. I nterim History: TWO DAYS OF FACIAL PAIN/PRESSURE (12/10) A ND SINUS CONGESTION. MAXILLARY. LOW GRADE TEMP TO 100 PAST TWO DAYS. FATIGUE. HAD FLU A DX 10 DAYS AGO. FELT MUCH BETTER FROM THAT (NO TAMIFLU), THEN BEGAN FEELING WORSE. EVERYONE ELSE IN THE FAMILY HAS RECOVERED FROM FLU A. URINE DARKER. SEE INTERMITTENT HINT OF PINK IN URINE. PRIOR HX OF PROSTATTITIS. BUT NO FREQUENCY OR DYSURIA. DOES HAVE MILD PRESSURE IN PELVIS. * ROS: B asic ROS: Fever Admits. A dmits H eadache. * Medical History: * Surgical History: D enies Past Surgical History * Hospitalization/Major Diagno stic Procedure: D enies Past Hospitalization * Family History: F ather: alive, Alzheimer's, alcoholic dementia. M other: alive, Anxious, depression, bipolar, asthma, heart issues. 1 sister(s) - healthy. 1 son(s) , 1 daughter(s) - healthy. . * Social History: P rimary Social History: L iving Arrangement L iving Arrangement: I ndependent Living L iving with: G randparent(s),Sister,Other:,Parent(s) I s this a supportive environment? Y es Alcohol Use A lcohol Use Frequency: N ever Illicit Substance Usage I llicit Substance Usage: Y es I nterested in quitting: Y es S ubstance Used: M arijuana Employment Status E mployment Status: U nemployed T obacco Use: T obacco Control (Standard) T obacco use: N onsmoker * Medications: T akingLisinopril-hydroCHLOROthiazide 20-25 MG Tablet TAKE 1 TABLET BY MOUTH EVERY DAY Taking Lisinopril-hydroCHLOROthiazide 20-25 MG Tablet TAKE 1 TABLET BY MOUTH EVERY DAY DiscontinuedCiprofloxacin HCl 500 MG Tablet 1 tablet Orally every 12 hrs Influenza Vac Split Quad 0.5 ML Suspension Prefilled Syringe as directed Intramuscular once Influenza Vac Subunit Quad 0.5 ML Suspension Prefilled Syringe as directed Intramuscular Influenza Vac Subunit Quad 0.5 ML Suspension Prefilled Syringe as directed Intramuscular once Influenza Vac Subunit Quad 0.5 ML Suspension Prefilled Syringe as directed Intramuscular once Influenza Vac Subunit Quad 0.5 ML Suspension Prefilled Syringe as directed Intramuscular once Discontinued Ciprofloxacin HCl 500 MG Tablet 1 tablet Orally every 12 hrs Discontinued Influenza Vac Split Quad 0.5 ML Suspension Prefilled Syringe as directed Intramuscular once Discontinued Influenza Vac Subunit Quad 0.5 ML Suspension Prefilled Syringe as directed Intramuscular Discontinued Influenza Vac Subunit Quad 0.5 ML Suspension Prefilled Syringe as directed Intramuscular once Discontinued Influenza Vac Subunit Quad 0.5 ML Suspension Prefilled Syringe as directed Intramuscular once Discontinued Influenza Vac Subunit Quad 0.5 ML Suspension Prefilled Syringe as directed Intramuscular once * Allergies: N .K.D.A.no[Allergies Verified] Objective: * Vitals: I nitials: dt, Wt:327.4, Ht: 73, BMI:43.19, BP:110/70, HR:107, Oxygen sat %:97, RR:16, Pain scale:7. * Examination: G eneral Examination: GENERAL APPEARANCE: w ell developed, well nourished, in no acute distress. HEAD: n ormocephalic, atraumatic, TENDER MAXILLARY SINSUS REGIONS. EYES: P ERRLA, sclera and conjunctiva clear. EARS External ears intact. NOSE: n bridget patent, no lesions, septum intact. ORAL CAVITY: m ucosa moist. THROAT: n o erythema, no exudate, pharynx normal. NECK/THYROID: n o JVD, no goiter. SKIN: w arm and dry, no rashes. HEART: r egular rate and rhythm, no murmurs. LUNGS: r espirations regular and easy, clear to auscultation bilaterally. ABDOMEN: b owel sounds present, soft, nontender, nondistended, no masses palpable, no organomegaly . MUSCULOSKELETAL: n o joint deformity, swelling, redness, or warmth. EXTREMITIES: n o clubbing, cyanosis, or edema. NEUROLOGIC: c ranial nerves 2-12 grossly intact. Assessment: * Assessment: 1. G ross hematuria - R31.0 2 . A cute sinusitis - J01.90 (Primary) ? 3 . E ssential (primary) hypertension - I10 4 . E xposure to potential infection - Z20.9 5 . N utritional counseling - Z71.3 6 . Lipid screening - Z13.220 7 . S creening for diabetes mellitus - Z13.1 ? Plan: * Treatment: 2. G ross hematuria L AB: UA/M w/rflx Culture, Routine (Ordered for 07/28/2024) (Collection Date & Time - 07/28/2024) L AB: Chlamydia/Gonococcus/Mycoplasma genitalium, JACY, Urine (Ordered for 07/28/2024) (Collection Date & Time - 07/28/2024) L AB: C-Reactive Protein, Quant (Ordered for 07/28/2024) Clinical Notes: RECURRENT POSSIBLE HEMATURIA DURING EPISODES OF URI SUGGESTS IGA NEPHROPATHY. WILL PURSUE FURTHER EVALUATION IF HIS U/A CONFIRMS BLOOD, PROTEIN, OR CASTS. 3. E ssential (primary) hypertension L AB: CMP 14 Comprehensive Metabolic Panel* (Ordered for 07/28/2024) 4. E xposure to potential infection L AB: HIV Screen *HIV 1, 2 Ab, p24 Ag ([id number]) (Ordered for 07/28/2024) L AB: Hepatitis C Virus Antibody w/Rflx to Quantitative Real-time PCR ([id number]) (Ordered for 07/28/2024) 5. L ipid screening L AB: Lipid Panel* (Ordered for 07/28/2024) 6. S creening for diabetes mellitus L AB: Hemoglobin A1c* (Ordered for 07/28/2024) 7. O thers Notes:Learning About the Safe Use of Antibiotics material was discussed. Pt was educated on use of antibiotic medication including dosing, side effects, adverse effects and anticipated response. Pt was also educated on importance of completing full course of treatment as ordered. Patient voiced understanding of all. * Recommended Wellness and Pre vention Guidelines: * S tatus A lert L ast Done N ext Due A ction Taken N ONCOMPLIANT A lcohol use screening - 0 07/28/2024 - N ONCOMPLIANT H IV screening - 0 07/28/2024 - N ONCOMPLIANT I nfluenza vaccine (high risk) 1 0 07/28/2024 - * Procedure Codes: 3 008F BODY MASS INDEX [id number] Education given- Antibiotics [id number] MEDICAL NUTRITION, [place], [id number] TOBACCO NON-USER * Preventive Medicine: Counseling: C are goal follow-up plan: BMI management provided Y es Above Normal BMI Follow-up L ifestyle education regarding diet * Follow Up: 2 Weeks (Reason: confirm resolution, review labs) * * ENTER SHIP Sign off status: Completed true * Provider: Reshma San Date: 0 07/28/2024 Generated for Avery ortega/Delroy/Janine on: 0 07/29/2024 05:02 PM CARPENTER SHIP History and Physical Notes * HPI (History of Present Illness) Category Sub-Category Detail Notes Category Not es Depression Screening PHQ-9 Little inte rest or pleasure in doing things: Not at all Feeling down, depressed, or hopeless: No t at all Trouble falling or staying asleep, or sl eeping too much: Not at all Feeling tired or having little energy: N ot at all Poor appetite or overeating: Not at all [...] some way: Not at all Total Score: 0 Screening Acra Suicide Sev erity Rating Scale (LF) Do [...] Up Plan requir ed at this time. Examination Category Sub-Category Detail Notes Category Not es General Examination GENERAL APPEARANCE: well dev eloped, well nourished, in no acute distress HEAD: normocephalic, atrau matic, TENDER MAXILLARY SINSUS REGIONS EYES: PERRLA, sclera and c onjunctiva clear EARS External ears intact NOSE: nares patent, no les ions, septum intact THROAT: no erythema, no exud ate, pharynx normal NECK/THYROID: no JVD, no goiter HEART: regular rate and rhy thm, no murmurs LUNGS: respirations regular and easy, clear to auscultation bilaterally ABDOMEN: bowel sounds present , soft, nontender, nondistended, no masses palpable, no organomegaly NEUROLOGIC: cranial nerves 2-12 grossly intact SKIN: warm and dry, no rajiv hes EXTREMITIES: no clubbing, cyanosi s, or edema MUSCULOSKELETAL: no joint deformity, swelling, redness, or warmth ORAL CAVITY: mucosa moist
--- OUTSIDE RECORDS SUMMARY | 2024-07-29 17:02 | XMS_ITS | Referral Summary ---
Author Organization [facility] Address [address] [place] [address] Care Team Providers Care Guest Room Inspector Name Role Phone Esvin San MD Primary Care Provider [phone] Allergies No known active allergies Medications No known medications Active Problems Problem Noted Date Diagnosed Date Microscopic hematuria 04/04/2023 Pelvic pain 04/04/2023 Social History Tobacco Use Types Packs/Day Years [...] on file Legal Sex Male 9:22 PM LEGAL JOB TIT[employer] Gender Identity Not on file Sexual Orientation [...] Mass Index - - Plan of Treatment Not on file Insurance [facility] Care Teams Guest Room Inspector Relationship Specialty Start Date End Date Esvin San MD [address] [place] [address] [place] [address] PCP - General Internal Medicine 03/29/23
--- OUTSIDE RECORDS SUMMARY | 2024-07-29 17:02 | XMS_ITS | Clinical Summary ---
Author Organization [facility] Address [address] [place] [address] Care Team Providers Care Humidifier Operator Name Role Phone Unavailable Primary Care Provider Unavailabl e Source Comments [facility],non-owned Affiliates and Associated Physician Practices is amultiple site organization consisting of ambulatory clinics and hospital sitesin [place], [place], [place] and [place]. This disclosure is being madepursuant to the Care Everywhere program and may not contain all information available regarding this patient. Last updated 18.Faveous Allergies No known active allergies Medications * [...] B VACCINE, PED/ADOL 02/26/1997,1996, HIB-PRP-T 4 DOSE 08/13/1997,199 7,1996,07/10 Human Papilloma Virus Rafaela valent Vaccine 10/23/2012,04/21/2012 Human Papilloma Virus Vaccine 09/24/2011 INFLUENZA VACCINE 06/08/2002,04/18/2002 INFLUENZA VACCINE, QUADR. (F LUZONE; FLULAVAL; FLUARIX; AFLURIA QUADRIVALENT; 6MO+), 0.5 ML (IIV4) 03/19/2014 Influenza Nasal 04/21/2012 MENINGOCOCAL MENINGITIS 08/29/2007 MENINGOCOCCAL CONJUGATE (MCV4P) 04/21/2012 MMR 05/16/2001,05/19/1997 POLIO IPV 05/16/2001 POLIO OPV 08/13/1997,199 7,1996,07/10 PPD 05/16/2001 TDAP (7yrs+) 08/29/2007 VARICELLA 05/19/1997 Family History Medical History Relation Name Comments Cancer Maternal Grandfather liver Diabetes Maternal Grandfather Hypercholesterolemia Maternal Grandfather Hypertension Maternal Grandfather Asthma Maternal Grandmother Cancer Maternal Grandmother cervica l Hypercholesterolemia Maternal Grandmother Migraine Maternal Grandmother Asthma Mother Migraine Mother Cancer Paternal Grandmother leukemi a Migraine Sister Relation Name Status Comments Maternal Grandfather Maternal Grandmother Mother Paternal Grandmother Sister Social History Tobacco Use Types Packs/Day Years [...] 11/06/2021 2:23 PM CDT Plan of Treatment Health Maintenance Due Date Last Done Comments HIV SCREENING 2011 HEPATITIS C SCREENING 05/11/2014 DTAP/TDAP/TD VACCINES (7 - Td or Tdap) 08/28/2017 08/29/2007, 05/16/2001, 08/13/1997, Additional history exists COVID-19 VACCINE ( season) 2024 10/09/2020 INFLUENZA VACCINE (#1) 2024 4, 04/21/2012, 06/08/2002, Additional history exists DEPRESSION SCREENING 06/03/2024 ZOSTER VACCINE (1 of 2) 2046 HEPATITIS B VACCINE Completed 02/26/1997, 1996, 1996 HIB VACCINE Completed 08/13/1997, 11/02, 1996, Additional history exists MENINGOCOCCAL VACCINE Aged Out 04/21/2012, 008 No longer eligible based on patient's age to complete this topic HPV VACCINE Completed 10/23/2012, 04/03, 09/24/2011 MENINGOCOCCAL (Group B) VACCINE Aged Out No longer eligible based on patient's age to complete this topic PNEUMOCOCCAL VACCINE Aged Out No long er eligible based on patient's age to complete this topic
--- OUTSIDE RECORDS SUMMARY | 2024-07-29 17:02 | XMS_ITS | Continuity of Care Document ---
Author Organization [facility] Address [address] [place] [address] Phone Care Team Providers Care Contract Implementation Analyst Name Role Phone Grey OD, Yury Unavailable Unavailable Procedures Procedure Date Eye Exam, New Patient Refraction Advance Directives Directive Yes / No Effective Date File Name No Information Encounters Encounter Description Practice Location Reason(s) For Visit Diagnoses Date Provider Providers Copied on Encounter [facility], [address], [place], [place], [id number], [place] tel:[phone] [facility] ([facility]) No Information 2-201 0 Grey OD Yury. [address] , [address], [place], [address], [place]. tel:[phone] Family History Family Member Type Diagnosis Age At Onset No Information Payers Payer name Insurance type Covered republican ID Authorellea tichristelle(s) Medicaid [facility] [id number] Social History Type Description Quantity Date Captured Comments Sex Male Smoking Status No Information Chief Complaint And Reason For Visit No Information Reason For Referral Reason For Referral No Information History Of Present Illness Encounter Date Complaint History Of Prese nt Illness No Information Functional Status Date Functional Assessmen t No Information Instructions Date Instruction Additional Infor mation No Information Assessments Type Assessment Date No Information Patient Care Teams Name Effective Dates (start - stop) Status Members No Information
--- OUTSIDE RECORDS SUMMARY | 2024-07-29 17:02 | XMS_ITS | Patient Health Record ---
Author Organization [facility] Address [address] [place] [address] Care Team Providers Care Trauma Registrar Name Role Phone Jaswinder Esvin Primary Care Provider Joesph Mckenna Unavailable [phone] Allergies No Known Allergies Reason For Referral Reason CPPS, blood in urine , last saw urology under old insurance, unsure if will take new insurance Diagnosis 1 Chronic prostatitis (N41.1) Diagnosis 2 Gross hematuria (R31 .0) Referral Organization [facility] Referring Provider First Name Joesph Referring Provider Last Name Bala Referring Provider [facility] Referred Provider [facility] Referred Provider Specialty Urology General Notes Citlalli Katina GAUTHIER 06/12/2024 10:35:57 AM >Inge was seen by urology at [facility] April 2023. [facility] (and the [facility] website) indicates they are in network with [facility]. Will fax referral there when note from visit is available. Clinical Notes [facility], Dr. Jose J Crystal, [address] [place] [address], , Referral Priority Routine Medications Medication SIG (Take, Route, Frequency, Duration) Notes Start Date End Date Status Amoxicillin-Pot Clavulanate 875-125 MG 1 tablet with food Orally every 12 hrs for 7 days 07/28/2024 08/03/2024 Active Lisinopril-hydroCHLOROthia zide 20-25 MG TAKE 1 TABLET BY MOUTH EVERY DAY for 90 Active Immunizations Vaccine Route Administration Date Status Comme nts FLU VAC NO PRSV 4VAL 6 mo+ IM Intramuscular 03/19/2023 Adm inistered Social History Tobacco Use: Social History Observation Description Date Details (start date - stop date) Never Smoker NA - NA Sex Assigned At : Social History Observation Description Sex Assigned At Male Alcohol Screen (Audit-C) Question Answer Notes Did you have a drink containing alcohol in the p ast year? No Tobacco Control (Standard) Question Answer Notes Tobacco use: Nonsmoker Problems Problem Type SNOMED Code ICD Code Onset Dates Problem Status W/U Status Risk Notes Problem Morbid obesity (disorder) (834819032) Morbid (severe) obesity due to excess calories (E66.01) Active confirmed Problem Essential hypertension (79507279) Essential (primary) hypertension (I10) Active confirmed Problem Chronic prostatitis (11379973) Chronic prostatitis (N41.1) Active confirmed Problem Palpitations (77276186) Palpitations (R00.2) Active confirmed Problem Colon cancer screening (676772251) Colon cancer screening (Z12.11) Active confirmed Problem Physical examination, complete (22512481) Physical exam (Z00.00) Active confirmed Problem Hematochezia (686966232) Hematochezia (K92.1) Active confirmed Vital Signs Heart Rate 107 /min 07/28/2024 Temperature 98.8 degrees Fahrenheit 06/11/2024 Respiratory Rate 16 /min 07/28/2024 Oximetry 97 % 07/28/2024 Blood pressure diastolic 70 mm Hg 07/28/2024 Height 73 in 07/28/2024 Blood pressure systolic 110 mm Hg 07/28/2024 Weight 327.4 lbs 07/28/2024 BMI 43.19 kg/m2 07/28/2024 Encounters Encounter Location Date Provider Diagnosis [address] [place] [address] 06/11/2024 Joesph Mckenna Nutritional counseling Z71.3 ; Sore throat J02.9 and Gross hematuria R31.[address] [place] [address] 07/28/2024 Esvin San Acute sinusitis J01.90 ; Gross hematuria R31.0 ; Essential (primary) hypertension I10 ; Exposure to potential infection Z20.9 ; Nutritional counseling Z71.3 ; Lipid screening Z13.220 and Screening for diabetes mellitus Z13.1 Assessments Encounter Date Diagnosis (ICD Code) Assessment Notes Treatment Notes Treatment Clinical Notes Section Notes 06/11/2024 Sore throat (ICD-10 - J02.9) 06/11/2024 Nutritional counseling (ICD-10 - Z71.3) 07/28/2024 Gross hematuria (ICD-10 - R31.0) RECURRENT POSSIBLE HEMATURIA DURING EPISODES OF URI SUGGESTS IGA NEPHROPATHY. WILL PURSUE FURTHER EVALUATION IF HIS U/A CONFIRMS BLOOD, PROTEIN, OR CASTS. 07/28/2024 Acute sinusitis (ICD-10 - J01.90) LIKELY POST-VIRAL BACTERIAL SINUSITIS. 06/11/2024 Gross hematuria (ICD-10 - R31.0) 07/28/2024 Essential (primary) hypertension (ICD-10 - I10) [...] voiced understanding of all. Plan Of Treatment Future Test Test Name Order Date HIV Screen *HIV 1, 2 Ab, p24 Ag ([id number]) 07/28/2024 Chlamydia/Gonococcus/Mycoplasma genitali um, JACY, Urine 07/28/2024 Hemoglobin A1c* 07/28/2024 CBC With Differential/Platelet* 07/28/19 C-Reactive Protein, Quant 07/28/2024 Hepatitis C Virus Antibody w/Rflx to Tien ntitative Real-time PCR ([id number]) 07/28/2024 Lipid Panel* 07/28/2024 CMP 14 Comprehensive Metabolic Panel* UA/M w/rflx Culture, Routine 07/28/2024 Insurance Providers Payer Name Payer Address Payer Phone Subscriber Number Group Number Insured Name Patient Relationship to Insured Coverage Start Date Coverage End Date [employer] [address] [place] [address] [id number] Tereso Quickan Self - patient is the insured 2 4 [facility] Att[facility] Claims Department [address] [facility] [place] [address] [id number] Tereso Quickan Self - patient is the insured [address] [place] [address] [id number] Inge Quick Self - patient is the insured 2 4 Medical (General) History Medical History History ICD Code hypertension palpitations hematochezia Surgical History Surgery Date(Month/Year) Hospitalization History Reason Date(Month/Year)
[2024-07-29 17:58] LABS: Alanine Aminotransferase 24 U/L (6-50); Albumin Level 4.3 g/dL (3.5-5.1); Alkaline Phosphatase 70 U/L (38-126); Anion Gap 10 mmol/L (4-12); Aspartate Amino Transferase 31 U/L (17-59); Bilirubin,Total 0.8 mg/dL (0.2-1.3); Blood Urea Nitrogen 14 mg/dL (9-20); CRP 7.8 mg/dL (<1.0); Carbon Dioxide 31 mmol/L (22-30); Chloride 98 mmol/L (98-107); Cholesterol 158 mg/dL (0-200); Estimated Glomerular Filt Rate > 60; Glucose 114 mg/dL (65-110); HDL Direct 38 mg/dL; Potassium 4.1 mmol/L (3.4-5.0); Sodium 139 mmol/L (137-145); Triglycerides 94 mg/dL (<150)
[2024-07-29 18:06] LABS: LDL Cholesterol Direct 82 mg/dL
[2024-07-29 19:55] LABS: Hemoglobin A1C 5.6 % (<5.7)
== END 2024-07-29 14:42 | disposition home or self-care (01) ==
LOC: ANHLAB 14:45
PROVIDERS: PCP Internal Medicine; Visit Provider Internal Medicine
DX: Z13.220 Encounter for screening for lipoid disorders (principal); J01.90 Acute sinusitis, unspecified; I10 Essential (primary) hypertension; R31.0 Gross hematuria; Z13.1 Encounter for screening for diabetes mellitus; Z20.9 Contact with and (suspected) exposure to unspecified communicable disease
CPT/HCPCS: 36415; 80053; 80061; 83036; 85025; 86140; 86703; 86803; 87491; 87591; G0432